=== PATIENT | male | born 1985 | race Caucasian/White ===

== ENCOUNTER 2016-06-10 12:45 | Emergency (ER) | payer SELFPAY ==
[2016-06-10 12:55] VITALS: BP 122/74
--- NOTE | 2016-06-10 13:13 | ER Document Report ---
ED Medical Screen (RME) - General Chief Complaint: Abscess Stated Complaint: ABSCESS/TAILBONE Mode of Arrival: Ambulatory Information source: Patient Notes: Pt to the ED with c/o abscess to tailbone area for 2 days. Denies hx of MRSA. I have greeted and performed a rapid initial assessment of this patient. A comprehensive ED assessment and evaluation of the patient, analysis of test results and completion of the medical decision making process will be conducted by additional ED providers. TRAVEL OUTSIDE OF THE [place] IN LAST 30 DAYS: No - Related Data Allergies/Adverse Reactions: No Known Allergies Allergy (Verified 06/10/16 13:01) Past Medical History - Social History Chew tobacco use (# tins/day): No Frequency of alcohol use: None Drug Abuse: None Pulmonary Medical History: Reports: Hx Bronchitis Neurological Medical History: Reports: Hx Migraine Renal/ Medical History: Denies: Hx Peritoneal Dialysis Psychiatric Medical History: Reports: Hx Depression Past Surgical History: Reports: Hx Cardiac Surgery - open heart for ASD, Hx Oral Surgery - Immunizations Immunizations up to date: Yes Hx Diphtheria, Pertussis, Tetanus Vaccination: Yes Physical Exam - Vital signs Vitals: Temp Pulse Resp BP Pulse Ox 98.0 F 77 20 122/74 96 06/10/16 12:54 06/10/16 12:54 06/10/16 12:54 06/10/16 12:54 06/10/16 12:54 Course - Vital Signs Vital signs: Temp Pulse Resp BP Pulse Ox 98.0 F 77 20 122/74 96 06/10/16 12:54 06/10/16 12:54 06/10/16 12:54 06/10/16 12:54 06/10/16 12:54
[2016-06-10] MEDS ORDERED: LIDOCAINE 1%/EPINEPHRINE INJ 20 ML VIAL INJ ONE (14:00)
[2016-06-10] MEDS ORDERED: OXYCODONE-ACETAMINOPHEN 5-325 MG TABLET PO ONE (14:02)
[2016-06-10] MEDS ORDERED: PROMETHAZINE HCL 25 MG TABLET PO ONE (14:02)
--- NOTE | 2016-06-10 14:07 | ER Document Report ---
ED Skin Rash/Insect Bite/Abscs - General Chief Complaint: Abscess Stated Complaint: ABSCESS/TAILBONE Mode of Arrival: Ambulatory Notes: Patient has a recurrent pilonidal abscess at the superior gluteal crease to the patient's right. He says that it began to swell about a week ago and became painful about a couple of days ago. This time, it has not drained spontaneously. Patient has had these abscesses many times in the past and sometimes a drain spontaneously and got better and other times he said to have them opened surgically and drained, about 4-5 times in the past. Denies fever. TRAVEL OUTSIDE OF THE [place] IN LAST 30 DAYS: No - Related Data Allergies/Adverse Reactions: No Known Allergies Allergy (Verified 06/10/16 13:01) Past Medical History - General Information source: Patient - Social History Smoking Status: Never Smoker Chew tobacco use (# tins/day): No Frequency of alcohol use: None Drug Abuse: None Family History: Reviewed & Not Pertinent, DM Patient has suicidal ideation: No Patient has homicidal ideation: No Pulmonary Medical History: Reports: Hx Bronchitis Neurological Medical History: Reports: Hx Migraine Psychiatric Medical History: Reports: Hx Depression Past Surgical History: Reports: Hx Cardiac Surgery - open heart for ASD, Hx Oral Surgery - Immunizations Immunizations up to date: Yes Hx Diphtheria, Pertussis, Tetanus Vaccination: Yes Review of Systems - Review of Systems Notes: REVIEW OF SYSTEMS: CONSTITUTIONAL : Denies fever. EENT: Denies eye, ear, nose or mouth or throat pain or other symptoms. CARDIOVASCULAR: Denies chest pain. RESPIRATORY: Denies cough, chest congestion, or shortness of breath. GASTROINTESTINAL: Denies abdominal pain or nausea, vomiting, or diarrhea. GENITOURINARY: Denies difficulty or painful urinating, urinary frequency, blood in urine. MUSCULOSKELETAL: Denies back or neck pain. Denies joint pain or swelling. SKIN: Denies rash. See history of present illness. NEUROLOGICAL: Denies LOC or altered mental status. Denies headache. Denies sensory loss or motor deficits. ALL OTHER SYSTEMS REVIEWED AND NEGATIVE. Physical Exam - Vital signs Vitals: Temp Pulse Resp BP Pulse Ox 98.0 F 77 20 122/74 96 06/10/16 12:54 06/10/16 12:54 06/10/16 12:54 06/10/16 12:54 06/10/16 12:54 Interpretation: Normal - Notes Notes: PHYSICAL EXAMINATION: GENERAL: Well-appearing, in no acute distress. HEAD: Atraumatic, normocephalic. LUNGS: Breath sounds clear and equal bilaterally. HEART: Regular rate and rhythm without murmurs. ABDOMEN: Soft, nontender. No guarding or rebound. BACK: No tenderness throughout entire back. Patient has an obvious swollen area at the superior right gluteal cleft which is fluctuant and very tender to the touch and has some dry blood around the area which looks like lesion has begun to drain. EXTREMITIES: Normal range of motion without pain. NEUROLOGICAL: Normal speech, normal gait. Normal sensory, motor, and reflex exams. Awake, alert, and oriented x3. Cranial nerves normal. SKIN: Warm, dry, no rashes. Course - Vital Signs Vital signs: Temp Pulse Resp BP Pulse Ox 98.0 F 77 20 122/74 96 06/10/16 12:54 06/10/16 12:54 06/10/16 12:54 06/10/16 12:54 06/10/16 12:54 Procedures - Incision and Drainage Right Upper Buttock Type: Simple, Single Anesthetic type: 1% Lidocaine w/epi Blade size: 11 I&D procedure: Betadine prep applied, Iodoform packing placed Incision Method: Incision made by scalpel Amount/type of drainage: 5 Adult Front & Back picture: 1 - Swollen, fluctuant, tender abscess just to the left of the gluteal crease superiorly. Discharge - Discharge Clinical Impression: Pilonidal abscess Condition: Stable Disposition: HOME, SELF-CARE Additional Instructions: ABSCESS: You have an abscess (boil). This a pus-forming infection, usually due to staph. Some boils may be left to drain on their own, but most require lancing. From the time the tender lump first appears, it may be three or four days before the abscess is ready to kranthi. Local heat and rest help at this stage of treatment. An antibiotic may prevent spread of the infection. Once the abscess is opened, packing may be placed into it. This is done so pus is not sealed inside by premature closure of the cavity. The packing will be removed at your follow-up visit or you may be advised to remove it yourself at home. Sometimes this packing must be replaced a few times during healing. The wound will heal with surprisingly little scar. Depending on the size and location of an abscess, healing can take one to four weeks. You may shower and wash the area around the incision site two or three times a day. Antibiotics may be prescribed, but are usually not necessary after an abscess has been drained. If you develop fever, chills, worsening pain, or increasing swelling in the area, call the doctor or return immediately. POST INCISION AND DRAINAGE: You have had an incision made to allow drainage of an abscess. The incision must remain open so that pus and debris can drain from the wound. If the abscess cavity is large, packing is placed. This keeps the tissues from collapsing and trapping pus inside, while the body shrinks the cavity. The packing may need to be replaced every day or two. The physician will instruct you on the packing. Keep a bulky dressing over the area. Replace it if it becomes saturated with blood or pus. Do not disturb the packing (if present). You may shower and cleanse the area with gentle soap and warm water two or three times a day. Local warmth may be soothing, and may promote faster healing. Return if you develop high fever or chills, or if you note spreading redness, increasing swelling, or increasing tenderness. Pulled the packing out Wednesday. MRSA CELLULITIS: You have an infection of your skin and underlying soft tissues called cellulitis. This is due to bacteria, which can enter through any break in the skin, or even through an irritated hair follicle. Untreated, cellulitis will usually worsen and may form an abscess which requires draining. Although many bacterial organisms can cause cellulitis and abscess formations, the most likely bacteria is Methicillin-Resistant Staph Aureus, or MRSA for short. Antibiotics are required. Usually, warm packs or warm soaks, and elevation of the infected area are recommended. You should start getting better within 24 to 36 hours. Most infections respond quickly to the right medication. Follow-up care is important, however, to check for abscess (boil) formation, unsuspected foreign body, or resistant infection. If you develop fever, chills, or if the area of infection is becoming rapidly more swollen or painful, call the doctor at once. ORAL NARCOTIC MEDICATION: You have been given a prescription for pain control. This medication is a narcotic. It's best taken with food, as nausea can result if taken on an empty stomach. Don't operate machinery or drive within six hours of taking this medication. Do not combine this medicine with alcohol, or with any medication which can cause sedation (such as cold tablets or sleeping pills) unless you get permission from the physician. Narcotics tend to cause constipation. If possible, drink plenty of fluids and eat a diet high in fiber and fruits. CEPHALEXIN: The antibiotic you've been prescribed is a member of the cephalosporin class. This type of antibiotic covers a wide variety of infections, including those of the skin, lungs, and urinary tract. It's useful for staph infections. This antibiotic is slightly similar to the penicillin family. In rare cases , a person who is allergic to penicillin will also be allergic to this medication. If you have had a severe allergic reaction to penicillin, and have not taken this antibiotic since that time, notify your doctor. Antibiotics which cover many germs ("broad spectrum" antibiotics) are more likely to cause diarrhea or "yeast" infections. Women prone to vaginal yeast problems may suffer an attack after taking this antibiotic. In infants, oral thrush (white spots "stuck" on the cheek) or yeast diaper rash may result. See your doctor if these problems occur. Call at once if you develop itching, hives , shortness of breath, or lightheadedness. FOLLOW-UP CARE: Most simple abscesses will not require a follow up visit. If you had packing placed in the abscess, remove it as instructed by the physician. If you have been referred to a physician for follow-up care, call the physicians office for an appointment as you were instructed or within the next two days. If you experience worsening or a significant change in your symptoms, return to the Emergency Department at any time for re-evaluation. Prescriptions: Oxycodone HCl/Acetaminophen [Percocet 10-325 Mg Tablet] 1 each PO Q4HP PRN #15 tablet PRN Reason: Cephalexin [Cephalexin 500 MG Tablet] 1 tab PO QID #20 tablet Forms: Return to Work
== END 2016-06-10 15:21 | disposition home or self-care (01) ==
LOC: ER 12:45
PROC: 0H98XZZ Drainage of Buttock Skin, External Approach (ICD-10-PCS; principal; 2016-06-10)
DX: L05.01 Pilonidal cyst with abscess (principal)
CPT/HCPCS: 10080; 99283; 87070; 87205; 87075; J3490; 87077

== ENCOUNTER 2016-06-25 15:26 | Emergency (ER) | payer SELFPAY ==
[2016-06-25] MEDS ORDERED: LIDOCAINE 2% VISCOUS SOLN 20 ML UDCUP PO ONE (15:47)
[2016-06-25] MEDS ORDERED: MAG HYDROX/AL HYDROX/SIMETH SUSP 30 ML UDCUP PO ONE (15:47)
[2016-06-25] MEDS ORDERED: METOCLOPRAMIDE HCL ORAL SOLN 10 MG/10 ML UDCUP PO ONE (15:47)
[2016-06-25] MEDS ORDERED: ASPIRIN 81 MG TABLET, CHEWABLE PO ONE (15:48)
--- NOTE | 2016-06-25 15:55 | ER Document Report ---
ED Medical Screen (RME) - General Chief Complaint: Chest Pain > 30 Stated Complaint: CHEST PAIN Mode of Arrival: Ambulatory Information source: Patient Notes: 31 y/o M presents to ED c/o epigastric/mid chest pain since this morning. Denies fever, sob, or n/v. I have greeted and performed a rapid initial assessment of this patient. A comprehensive ED assessment and evaluation of the patient, analysis of test results and completion of the medical decision making process will be conducted by additional ED providers. TRAVEL OUTSIDE OF THE [place] IN LAST 30 DAYS: No - Related Data Allergies/Adverse Reactions: No Known Allergies Allergy (Verified 06/25/16 15:45) Past Medical History - Social History Chew tobacco use (# tins/day): No Frequency of alcohol use: None Drug Abuse: None Pulmonary Medical History: Reports: Hx Bronchitis Neurological Medical History: Reports: Hx Migraine Renal/ Medical History: Denies: Hx Peritoneal Dialysis Psychiatric Medical History: Reports: Hx Depression Past Surgical History: Reports: Hx Cardiac Surgery - open heart for ASD, Hx Oral Surgery - Immunizations Immunizations up to date: Yes Hx Diphtheria, Pertussis, Tetanus Vaccination: Yes Physical Exam - General General appearance: Appears well, Alert In distress: None - Respiratory Respiratory status: No respiratory distress Breath sounds: Normal
[2016-06-25 16:08] LABS: ABSOLUTE BASOPHILS # (AUTO) 0.1 10^3/uL (0.0-0.2); ABSOLUTE EOSINOPHILS # (AUTO) 0.2 10^3/uL (0.0-0.6); ABSOLUTE LYMPHOCYTES (AUTO) 3.2 10^3/uL (0.5-4.7); ABSOLUTE NEUT (AUTO) 4.4 10^3/uL (1.7-8.2); EOSINOPHILS % (AUTO) 1.8 % (0-6); HEMOGLOBIN 15.3 g/dL (13.5-17.0); HGB HCT DIFFERENCE 0.9; LYMPHOCYTES % (AUTO) 36.6 % (13-45); MEAN CORPUSCULAR HEMOGLOBIN 27.6 pg (27.0-33.4); MEAN CORPUSCULAR VOLUME 81 fl (80-97); MONOCYTES % (AUTO) 10.9 % (3-13); RED BLOOD COUNT 5.54 10^6/uL (4.35-5.55); RED CELL DISTRIBUTION WIDTH 13.9 % (11.5-14.0); SEGMENTED NEUTROPHILS % (AUTO) 49.7 % (42-78); WHITE BLOOD COUNT 8.9 10^3/uL (4.0-10.5)
[2016-06-25 16:30] LABS: ALANINE AMINOTRANSFERASE 84 U/L (21-72); ALBUMIN 4.4 g/dL (3.5-5.0); ALKALINE PHOSPHATASE 66 U/L (38-126); ANION GAP 12 (5-19); ASPARTATE AMINO TRANSFERASE 57 U/L (17-59); BILIRUBIN,TOTAL 0.7 mg/dL (0.2-1.3); BLOOD UREA NITROGEN 9 mg/dL (7-20); CALCIUM 9.2 mg/dL (8.4-10.2); CARBON DIOXIDE 26 mmol/L (22-30); CHLORIDE 104 mmol/L (98-107); CREATINE KINASE 397 U/L (55-170); CREATININE RESULT 0.91 mg/dL (0.52-1.25); GLUCOSE 77 mg/dL (75-110); POTASSIUM 4.3 mmol/L (3.6-5.0); TOTAL PROTEIN 7.2 g/dL (6.3-8.2)
[2016-06-25 16:41] LABS: CREATINE KINASE MB 1.61 ng/mL (<4.55)
[2016-06-25 16:42] LABS: TROPONIN I < 0.012 ng/mL
--- NOTE | 2016-06-25 16:52 | ER Document Report ---
ED General - General Chief Complaint: Chest Pain > 30 Stated Complaint: CHEST PAIN Time seen by provider: 16:52 Mode of Arrival: Ambulatory Information source: Patient Notes: 31 yo non smoker, non htn, non hyperlipedemic, obese male with ASD correction at age 4 developed at 12:10 dull pain lower sternum intermittent chest pain that shortly thereafer radiated to epigastric dull pain on way to the bus. Went to bathroom and had bowel movement with decreased the epigastric discomfort but says chest still hurts and feels very weak. denies drug use. Meds in triage helped. No shortness of breath. No hx GERD. FH: htn, dm non cad TRAVEL OUTSIDE OF THE [place] IN LAST 30 DAYS: No - Related Data Allergies/Adverse Reactions: No Known Allergies Allergy (Verified 06/25/16 15:45) Past Medical History - General Information source: Patient - Social History Smoking Status: Former Smoker Chew tobacco use (# tins/day): No Frequency of alcohol use: None Drug Abuse: None Lives with: Family Family History: Reviewed & Not Pertinent, DM Patient has suicidal ideation: No Patient has homicidal ideation: No Pulmonary Medical History: Reports: Hx Bronchitis Neurological Medical History: Reports: Hx Migraine Renal/ Medical History: Denies: Hx Peritoneal Dialysis Psychiatric Medical History: Reports: Hx Depression Past Surgical History: Reports: Hx Cardiac Surgery - open heart for ASD, Hx Oral Surgery - Immunizations Immunizations up to date: Yes Hx Diphtheria, Pertussis, Tetanus Vaccination: Yes Review of Systems - Review of Systems Constitutional: No symptoms reported EENT: No symptoms reported Cardiovascular: See HPI Respiratory: No symptoms reported Gastrointestinal: See HPI Genitourinary: No symptoms reported Male Genitourinary: No symptoms reported Musculoskeletal: No symptoms reported Skin: No symptoms reported Hematologic/Lymphatic: No symptoms reported Neurological/Psychological: No symptoms reported Physical Exam - Vital signs Vitals: Temp Pulse Resp BP Pulse Ox 97.7 F 84 16 124/70 97 06/25/16 15:46 06/25/16 15:46 06/25/16 15:46 06/25/16 15:46 06/25/16 15:46 Interpretation: Normal - General General appearance: Appears well, Alert - HEENT Head: Normocephalic, Atraumatic Eyes: Normal Conjunctiva: Normal Pupils: PERRL Neck: Supple. No: Lymphadenopathy - Respiratory Respiratory status: No respiratory distress Chest status: Nontender Breath sounds: Normal Chest palpation: Normal - Cardiovascular Rhythm: Regular Heart sounds: Normal auscultation Murmur: No - Abdominal Inspection: Normal Distension: No distension Bowel sounds: Normal Tenderness: Tender - epigastrum Organomegaly: No organomegaly - Back Back: Normal, Nontender - Extremities General upper extremity: Normal inspection, Nontender, Normal color, Normal ROM , Normal temperature General lower extremity: Normal inspection, Nontender, Normal color, Normal ROM , Normal temperature, Normal weight bearing. No: Ramsey's sign - Neurological Neuro grossly intact: Yes Cognition: Normal Orientation: AAOx4 Vancleve Coma Scale Eye Opening: Spontaneous Sidra Coma Scale Verbal: Oriented Vancleve Coma Scale Motor: Obeys Commands Sidra Coma Scale Total: 15 Speech: Normal Motor strength normal: LUE, RUE, LLE, RLE Sensory: Normal - Psychological Associated symptoms: Normal affect, Normal mood - Skin Skin Temperature: Warm Skin Moisture: Dry Skin Color: Normal Skin irregularity: negative: Rash Course - Re-evaluation Re-evalutation: 06/25/16 17:51 I have consulted with the supervisory physician per [facility] Guidelines. Dr. GLOVER. 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 EKG is normal sinus rhythm. Chest x-ray is negative. Reactive enzymes are negative. Troponin is negative. One liver enzymes mildly elevated. 06/25/16 18:20 vitals stable for discharge - Vital Signs Vital signs: Temp Pulse Resp BP Pulse Ox 97.9 F 79 18 106/66 98 06/25/16 18:18 06/25/16 18:18 06/25/16 18:18 06/25/16 18:18 06/25/16 18:18 - Laboratory Result Diagrams: 06/25/16 15:50 06/25/16 15:50 Laboratory results interpreted by me: 06/25/16 15:50 ALT 84 H Creatine Kinase 397 H Discharge - Discharge Clinical Impression: Epigastric pain Chest pain Qualifiers: Chest pain type: unspecified Qualified Code(s): R07.9 - Chest pain, unspecified Condition: Good Disposition: HOME, SELF-CARE Instructions: Low-Fat Diet ([facility]), Evaluation of Upper Abdominal Pain ([facility]), Chest Pain of Unclear Cause ([facility]), Family Physicians / Practices, Prilosec ( Acid Pump Inhibitor) ([facility]), Gastroenterology Additional Instructions: return to er if worse see a [facility] practice doctor for follow up 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 If you do not receive a survey, then you can go to the [facility] website, [email or web address] and place your comments about your very good care. Thank you very much. It was a pleasure being your medical provider today. Prescriptions: Esomeprazole Magnesium [Nexium] 40 mg PO DAILY #30 [email or web address] Forms: Return to Work Referrals: LOCALMD,NO [NO LOCAL MD] - Follow up as needed
[2016-06-25] MEDS ORDERED: LANSOPRAZOLE 30 MG TAB.RAP.DR PO ONE (17:48)
[2016-06-25 18:26] VITALS: BP 106/66
--- NOTE | 2016-06-25 22:07 | EKG REPORT ---
SEVERITY:- NORMAL ECG - SINUS RHYTHM : Confirmed by: Rhea Pena 25-Jun-2016 22:07:13
== END 2016-06-25 18:28 | disposition home or self-care (01) ==
LOC: ER 15:26
DX: R07.9 Chest pain, unspecified (principal); R10.13 Epigastric pain; R74.8 Abnormal levels of other serum enzymes; E66.9 Obesity, unspecified; R53.1 Weakness; Z87.891 Personal history of nicotine dependence
CPT/HCPCS: 93005; 99285; 36415; 82553; 82550; 83690; 85025; 80053; 84484; 71020; 93010; J3490

== ENCOUNTER 2016-07-05 14:56 | Emergency (ER) | payer SELFPAY ==
[2016-07-05] MEDS ORDERED: IBUPROFEN 800 MG TABLET PO ONE (16:22)
--- NOTE | 2016-07-05 16:22 | ER Document Report ---
ED Medical Screen (RME) - General Stated Complaint: SORE THROAT Time seen by provider: 16:20 Mode of Arrival: Ambulatory Information source: Patient Notes: 31-year-old male presents to ED for sore throat for week with difficulty swallowing just started today. No hypertrophy to tonsils or exudate noted. Patient denies fevers. States he's had some coughing and runny nose. States only past medical history is ASD repair at 3 years old.. I have greeted and performed a rapid initial assessment of this patient. A comprehensive ED assessment and evaluation of the patient, analysis of test results and completion of medical decision making process will be conducted by an additional ED providers. TRAVEL OUTSIDE OF THE [place] IN LAST 30 DAYS: No - Related Data Allergies/Adverse Reactions: No Known Allergies Allergy (Verified 06/25/16 15:45) Past Medical History Pulmonary Medical History: Reports: Hx Bronchitis Neurological Medical History: Reports: Hx Migraine Renal/ Medical History: Denies: Hx Peritoneal Dialysis Psychiatric Medical History: Reports: Hx Depression Past Surgical History: Reports: Hx Cardiac Surgery - open heart for ASD, Hx Oral Surgery - Immunizations Immunizations up to date: Yes Hx Diphtheria, Pertussis, Tetanus Vaccination: Yes Physical Exam - Vital signs Vitals: Temp Pulse Resp BP Pulse Ox 98.1 F 58 L 16 111/65 97 07/05/16 16:01 07/05/16 16:01 07/05/16 16:01 07/05/16 16:01 07/05/16 16:01 Course - Vital Signs Vital signs: Temp Pulse Resp BP Pulse Ox 98.1 F 58 L 16 111/65 97 07/05/16 16:01 07/05/16 16:01 07/05/16 16:01 07/05/16 16:01 07/05/16 16:01
[2016-07-05 19:22] VITALS: BP 115/66
--- NOTE | 2016-07-05 19:24 | ER Document Report ---
HPI - HPI Patient complains to provider of: sore throat cough and difficulties swallowing Onset: This morning Onset/Duration: Intermittent Quality of pain: Other - Sore Severity: Moderate Pain Level: 3 Associated Symptoms: Nonproductive cough, Rhinnorhea, Sinus pain/drainage, Sore throat Exacerbated by: Coughing Relieved by: Denies Similar symptoms previously: Yes Recently seen / treated by doctor: No - ROS ROS below otherwise negative: Yes - CONSTITUTIONAL Constitutional: DENIES: Fever, Chills - EENT EENT: REPORTS: Sore Throat, Nasal Drainage-Purulent. DENIES: Ear Pain, Nasal Drainage-Clear, Congestion, Eye problems - NEURO Neurology: DENIES: Headache, Weakness, Vision blurred, Dizzinesss / Vertigo - CARDIOVASCULAR Cardiovascular: DENIES: Chest pain - RESPIRATORY Respiratory: REPORTS: Coughing. DENIES: Trouble Breathing - GASTROINTESTINAL Gastrointestinal: DENIES: Abdominal Pain, Nausea, Patient vomiting, Diarrhea, Constipation, Black / Bloody Stools - URINARY Urinary: DENIES: Dysuria, Urgency, Frequency - REPRODUCTIVE Reproductive: DENIES: :, Postmenopausal, Abnormal bleeding / discharge - MUSCULOSKELETAL Musculoskeletal: DENIES: Extremity pain, Back Pain, Neck Pain, Swelling - DERM Skin Color: Normal Skin Problems: None Past Medical History - General Information source: Patient - Social History Smoking Status: Never Smoker Chew tobacco use (# tins/day): No Frequency of alcohol use: None Drug Abuse: None Lives with: Family Family History: CVA, DM, Hyperlipidemia, Hypertension, Thyroid Disfunction Patient has suicidal ideation: No Patient has homicidal ideation: No - Past Medical History Cardiac Medical History: Reports: None Pulmonary Medical History: Reports: Hx Bronchitis EENT Medical History: Reports: None Neurological Medical History: Reports: Hx Migraine Endocrine Medical History: Reports: None Renal/ Medical History: Reports: None Malignancy Medical History: Reports None GI Medical History: Reports: None Musculoskeltal Medical History: Reports None Skin Medical History: Reports None Psychiatric Medical History: Reports: Hx Anxiety, Hx Depression Traumatic Medical History: Reports: None Infectious Medical History: Reports: None Past Surgical History: Reports: Hx Cardiac Surgery - open heart for ASD, Hx Oral Surgery - Immunizations Immunizations up to date: Yes Hx Diphtheria, Pertussis, Tetanus Vaccination: Yes Vertical Provider Document - CONSTITUTIONAL Agree With Documented VS: Yes Exam Limitations: No Limitations General Appearance: WD/WN, No Apparent Distress - INFECTION CONTROL TRAVEL OUTSIDE OF THE [place] IN LAST 30 DAYS: No - HEENT HEENT: Atraumatic, Normocephalic, PERRLA. negative: Normal ENT Exam - Purulent nasal drainage, postnasal drip, no redness or inflammation of tonsils or oral mucosa. - NECK Neck: Normal Inspection - RESPIRATORY Respiratory: Breath Sounds Normal, No Respiratory Distress, Chest Non-Tender O2 Sat by Pulse Oximetry: 97 - CARDIOVASCULAR Cardiovascular: Regular Rate, Regular Rhythm, No Murmur - MUSCULOSKELETAL/EXTREMETIES Musculoskeletal/Extremeties: MAEW, FROM, Non-Tender - NEURO Level of Consciousness: Awake, Alert, Appropriate - DERM Integumentary: Warm, Dry, No Rash, Rash Course - Vital Signs Vital signs: Temp Pulse Resp BP Pulse Ox 98.1 F 58 L 16 111/65 97 07/05/16 16:01 07/05/16 16:01 07/05/16 16:01 07/05/16 16:01 07/05/16 16:01 Discharge - Discharge Clinical Impression: Upper respiratory infection Qualifiers: URI type: unspecified URI Qualified Code(s): J06.9 - Acute upper respiratory infection, unspecified Condition: Stable Disposition: HOME, SELF-CARE Instructions: Family Physicians / Practices Additional Instructions: UPPER RESPIRATORY ILLNESS: You have a viral infection of the respiratory passages -- a "cold." This common infection causes nasal congestion, drainage, and often sore throat and cough. It is highly contagious. The disease usually lasts about 10 to 14 days. There is no "cure" for the viral infection -- it must run its course. If there is a complication, such as bacterial infection in the nose, sinuses, middle ear, or bronchial tubes, antibiotics may be required. The antibiotics won't affect the virus. Drink plenty of fluids. A humidifier may help. An expectorant medication or decongestant may make you more comfortable. Use acetaminophen or ibuprofen for fever or aches. See the doctor if fever persists over two days, if there is any significant worsening of your symptoms, or if you simply fail to improve as expected. DECONGESTANT MEDICATION: A decongestant medicine has been suggested. Often this medicine is combined in the same tablet with an antihistamine or expectorant. This type of medicine is helpful in treating a bad cold or sinus condition, as well as in treatment of the nasal congestion of hay fever. It is not of much benefit for lung infections. Decongestant medicines are related to stimulants. They can cause an increase in blood pressure and heart rate. Persons with heart disease and high blood pressure should not take decongestants without discussing this with the physician. If you develop palpitations, chest pain, headache, or tremors, stop the medicine and consult your physician. COUGH-SUPPRESSANT & EXPECTORANT MEDICATION: You are to use a cough medication as needed for relief of symptoms. This medicine is a combination of an expectorant (to make the mucous thinner and more easily "coughed up") and a cough suppressant (to reduce the frequency of coughing). The cough-suppressant medicine is related to narcotics. You may experience mild nausea and sleepiness. Some patients who are very sensitive to narcotics may have stomach pain from this medicine. Taking the medicine with food reduces these side effects. Do not drive or work with machinery until you know how this medicine affects you. The expectorant should have no side effects. Iodine-containing expectorants (such as organidin) should not be taken by persons with active thyroid disease unless approved by your doctor. Call the doctor if you develop shortness of breath, hives, rash, itching, lightheadedness, or severe nausea and vomiting. USE OF ACETAMINOPHEN (Tylenol): Acetaminophen may be taken for pain relief or fever control. It's much safer than aspirin, offering a wider range of "safe" dosages. It is safe during . Some brand names are Tylenol, Panadol, Datril, Anacin 3, Tempra, and Liquiprin. Acetaminophen can be repeated every four hours. The following are maximum recommended dosages: >89 pounds or adults 650 mg to 900 mg Acetaminophen can be repeated every four hours. Maximum dose not to exceed 4000 mg a day. Salt and soda solution for gargling 1 tablespoon of salt 1 teaspoon of baking soda 1 quart of boiling water Mixed together put in a jar that has a red and used 10 mL 3 times a day to gargle and spit. FOLLOW-UP CARE: If you have been referred to a physician for follow-up care, call the physician s office for an appointment as you were instructed or within the next two days. If you experience worsening or a significant change in your symptoms, notify the physician immediately or return to the Emergency Department at any time for re-evaluation. Forms: Return to Work
== END 2016-07-05 19:20 | disposition home or self-care (01) ==
LOC: ER 14:56
DX: J06.9 Acute upper respiratory infection, unspecified (principal); J02.9 Acute pharyngitis, unspecified; R05 Cough; R13.10 Dysphagia, unspecified
CPT/HCPCS: 87070; 87880; 99283

== ENCOUNTER 2016-07-17 15:07 | Emergency (ER) | payer SELFPAY ==
--- NOTE | 2016-07-17 15:13 | ER Document Report ---
ED Medical Screen (RME) - General Stated Complaint: DIZZINESS/ABDOMINAL PAIN Mode of Arrival: Ambulatory Information source: Patient Notes: Patient complains of feeling lightheaded, dizzy and having throat pain. Patient states that he did break into a sweat at home but is uncertain if he may have had a fever. Patient reports throat pain off and on for several weeks. Patient complains of generalized abdominal pain off and on for several days. Patient denies any nausea, vomiting, or diarrhea. hx: None I have greeted and performed a rapid initial assessment of this patient. A comprehensive ED assessment and evaluation of the patient, analysis of test results and completion of the medical decision making process will be conducted by additional ED providers. TRAVEL OUTSIDE OF THE [place] IN LAST 30 DAYS: No - Related Data Allergies/Adverse Reactions: No Known Allergies Allergy (Verified 07/17/16 15:13) Past Medical History Pulmonary Medical History: Reports: Hx Bronchitis Neurological Medical History: Reports: Hx Migraine Renal/ Medical History: Denies: Hx Peritoneal Dialysis Psychiatric Medical History: Reports: Hx Anxiety, Hx Depression Past Surgical History: Reports: Hx Cardiac Surgery - open heart for ASD, Hx Oral Surgery - Immunizations Immunizations up to date: Yes Hx Diphtheria, Pertussis, Tetanus Vaccination: Yes Physical Exam - Abdominal Tenderness: Tender - Generalized abdomen
[2016-07-17 15:39] LABS: ABSOLUTE EOSINOPHILS # (AUTO) 0.1 10^3/uL (0.0-0.6); ABSOLUTE LYMPHOCYTES (AUTO) 3.2 10^3/uL (0.5-4.7); ABSOLUTE MONOCYTES (AUTO) 0.9 10^3/uL (0.1-1.4); ABSOLUTE NEUT (AUTO) 4.4 10^3/uL (1.7-8.2); BASOPHILS % (AUTO) 0.4 % (0-2); EOSINOPHILS % (AUTO) 1.5 % (0-6); HEMATOCRIT 41.8 % (37.9-51.0); HEMOGLOBIN 14.5 g/dL (13.5-17.0); HGB HCT DIFFERENCE 1.7; LYMPHOCYTES % (AUTO) 36.6 % (13-45); MEAN CORPUSCULAR HEMOGLOBIN 28.3 pg (27.0-33.4); MEAN CORPUSCULAR HGB CONC 34.8 g/dL (32.0-36.0); MEAN CORPUSCULAR VOLUME 81 fl (80-97); MONOCYTES % (AUTO) 10.5 % (3-13); RED BLOOD COUNT 5.14 10^6/uL (4.35-5.55); WHITE BLOOD COUNT 8.7 10^3/uL (4.0-10.5)
--- NOTE | 2016-07-17 15:52 | ER Document Report ---
ED General - General Time seen by provider: 14:47 Mode of Arrival: Ambulatory Information source: Patient TRAVEL OUTSIDE OF THE [place] IN LAST 30 DAYS: No - HPI Onset: Other - see HPI notes Onset/Duration: Waxing and waning - d Associated symptoms: Sore throat <LARRY BRIONES - Last Filed: 07/17/16 16:44> <KARMENLISA ANN - Last Filed: 07/17/16 21:51> - General Chief Complaint: Abdominal Pain Stated Complaint: DIZZINESS/ABDOMINAL PAIN Notes: Patient is a 31 year old male presenting to the emergency department complaining of some throat pain for the past month. Patient also has some abdominal pain now that was all over but now is mostly in the RUQ. Patient also complains of some lightheaded/dizziness. Patient is currently taking no medications. Patient denies any nausea, vomiting, or diarrhea. (LARRY BRIONES) - Related Data Allergies/Adverse Reactions: No Known Allergies Allergy (Verified 07/17/16 15:13) Past Medical History - General Information source: Patient - Social History Smoking Status: Never Smoker Cigarette use (# per day): No Chew tobacco use (# tins/day): No Frequency of alcohol use: None Drug Abuse: None Family History: CVA, DM, Hyperlipidemia, Hypertension, Thyroid Disfunction Patient has suicidal ideation: No Patient has homicidal ideation: No Pulmonary Medical History: Reports: Hx Bronchitis Neurological Medical History: Reports: Hx Migraine Psychiatric Medical History: Reports: Hx Anxiety, Hx Depression Past Surgical History: Reports: Hx Cardiac Surgery - open heart for ASD (1987), Hx Oral Surgery - Immunizations Immunizations up to date: Yes Hx Diphtheria, Pertussis, Tetanus Vaccination: Yes <LARRY BRIONES - Last Filed: 07/17/16 16:44> Review of Systems - Review of Systems Constitutional: No symptoms reported EENT: See HPI, Throat pain Cardiovascular: See HPI, Dizziness, Lightheaded Respiratory: No symptoms reported Gastrointestinal: See HPI, Abdominal pain Genitourinary: No symptoms reported Male Genitourinary: No symptoms reported Musculoskeletal: No symptoms reported Skin: No symptoms reported Hematologic/Lymphatic: No symptoms reported Neurological/Psychological: No symptoms reported -: Yes All other systems reviewed and negative <LARRY BRIONES - Last Filed: 07/17/16 16:44> Physical Exam - Vital signs Interpretation: Normal - General General appearance: Appears well, Alert - HEENT Head: Normocephalic, Atraumatic Eyes: Normal Pupils: PERRL - Respiratory Respiratory status: No respiratory distress Chest status: Nontender Breath sounds: Normal Chest palpation: Normal - Cardiovascular Rhythm: Regular Heart sounds: Normal auscultation Murmur: No - Abdominal Inspection: Normal Distension: No distension Bowel sounds: Normal Tenderness: Tender - Tenderness to palpation bilateral upper quadrants, mild. No: Guarding, Rebound Organomegaly: No organomegaly - Back Back: Normal, Nontender - Extremities General upper extremity: Normal inspection, Nontender, Normal color, Normal ROM , Normal temperature General lower extremity: Normal inspection, Nontender, Normal color, Normal ROM , Normal temperature, Normal weight bearing. No: Ramsey's sign - Neurological Neuro grossly intact: Yes Cognition: Normal Orientation: AAOx4 Loco Coma Scale Eye Opening: Spontaneous Loco Coma Scale Verbal: Oriented Loco Coma Scale Motor: Obeys Commands Sidra Coma Scale Total: 15 Speech: Normal Motor strength normal: LUE, RUE, LLE, RLE Sensory: Normal - Psychological Associated symptoms: Normal affect, Normal mood - Skin Skin Temperature: Warm Skin Moisture: Dry Skin Color: Normal <LISA PERAZA - Last Filed: 07/17/16 21:51> Course - Laboratory Result Diagrams: 07/17/16 15:25 07/17/16 15:25 <LARRY BRIONES - Last Filed: 07/17/16 16:44> - Laboratory Result Diagrams: 07/17/16 15:25 07/17/16 15:25 - Diagnostic Test Radiology reviewed: Reports reviewed <LISA PERAZA - Last Filed: 07/17/16 21:51> - Re-evaluation Re-evalutation: 07/17/16 Patient no acute findings on blood work. No evidence for cholecystitis. Gallbladder ultrasound within normal limits. Patient was given GI cocktail and is feeling better. He'll be discharged home with same. Stable for discharge. Return if any worsening or concerning symptoms. Follow-up with PMD and GI doctor. Understands agrees with plan. (LISA PERAZA) - Laboratory Laboratory results interpreted by me: 07/17/16 07/17/16 15:25 15:25 ALT 86 H Urine Ascorbic Acid 40 H (LISA PERAZA) Discharge <LARRY BRIONES - Last Filed: 07/17/16 16:44> <LISA PERAZA - Last Filed: 07/17/16 21:51> - Discharge Clinical Impression: Upper abdominal pain Condition: Stable Disposition: HOME, SELF-CARE Instructions: Abdominal Pain ([facility]), Gastritis ([facility]), Gastroenterology Prescriptions: Lansoprazole [Prevacid 15 mg Odt Tablet] 15 mg PO ACBRKFST #30 tab.rap. Ranitidine HCl 150 mg PO BID #60 tablet Sucralfate [Carafate 1 gm Tablet] 1 gm PO ACHS #120 tablet Forms: Return to Work Scribe Attestation: 07/17/16 21:51 I personally performed the services described in the documentation, reviewed and edited the documentation which was dictated to the scribe in my presence, and it accurately records my words and actions. (LISA PERAZA) Scribe Documentation - Scribe Written by Scribe:: Larry Briones 07/17/16 16:46 acting as scribe for :: Karmen <LARRY BRIONES - Last Filed: 07/17/16 16:44>
[2016-07-17 15:57] LABS: ALANINE AMINOTRANSFERASE 86 U/L (21-72); ALBUMIN 4.5 g/dL (3.5-5.0); ALKALINE PHOSPHATASE 74 U/L (38-126); ANION GAP 14 (5-19); ASPARTATE AMINO TRANSFERASE 55 U/L (17-59); BILIRUBIN,TOTAL 0.6 mg/dL (0.2-1.3); BLOOD UREA NITROGEN 10 mg/dL (7-20); CALCIUM 9.5 mg/dL (8.4-10.2); CARBON DIOXIDE 24 mmol/L (22-30); CHLORIDE 103 mmol/L (98-107); CREATININE RESULT 0.84 mg/dL (0.52-1.25); GLUCOSE 81 mg/dL (75-110); LIPASE 122.2 U/L (23-300); POTASSIUM 4.2 mmol/L (3.6-5.0); SODIUM 141.1 mmol/L (137-145); TOTAL PROTEIN 7.6 g/dL (6.3-8.2)
[2016-07-17 16:33] LABS: APPEARANCE,URINE CLEAR
[2016-07-17 16:34] LABS: BILIRUBIN,URINE NEGATIVE (NEGATIVE); GLUCOSE, URINE NEGATIVE (NEGATIVE); KETONES,URINE NEGATIVE (NEGATIVE); LEUKOCYTE ESTERASE,URINE NEGATIVE (NEGATIVE); NITRITE,URINE NEGATIVE (NEGATIVE); PROTEIN,URINE NEGATIVE (NEGATIVE); URINE SPECIFIC GRAVITY 1.029; UROBILINOGEN,URINE NEGATIVE mg/dL (<2.0)
[2016-07-17 16:36] LABS: RBC,URINE RARE /HPF; WBC,URINE RARE /HPF
--- NOTE | 2016-07-17 16:53 | EKG REPORT ---
SEVERITY:- NORMAL ECG - SINUS RHYTHM : Confirmed by: Azra Yin MD 17-Jul-2016 16:53:17
[2016-07-17] MEDS ORDERED: FAMOTIDINE 20 MG TABLET PO ONE (17:01)
[2016-07-17] MEDS ORDERED: SUCRALFATE 1 GM TABLET PO ONE (17:01)
[2016-07-17] MEDS ORDERED: ONDANSETRON 4 MG TAB.RAPDIS PO ONE (17:01)
== END 2016-07-17 17:33 | disposition home or self-care (01) ==
LOC: ER 15:07
DX: R10.10 Upper abdominal pain, unspecified (principal); R42 Dizziness and giddiness
CPT/HCPCS: 93005; 99284; 36415; 83690; 85025; 86308; 80053; 81001; 87804; 76705; 93010; S0119

== ENCOUNTER 2016-07-30 15:46 | Emergency (ER) | payer SELFPAY ==
--- NOTE | 2016-07-30 16:07 | ER Document Report ---
ED Medical Screen (RME) - General Stated Complaint: HEAD/CHEST PAIN Notes: onset: wednesday patient is a 31 year old male p/w headache and chest pressure, body aches, cold sweats and dizzyness. Headache localized in tension distribution. Denies nausea , light sensitivity, sound sensitivity. (-) did not receive flu vaccine PMH: REGINA I have greeted and performed a rapid initial assessment of this patient. A comprehensive ED assessment and evaluation of the patient, analysis of test results and completion of the medical decision making process will be conducted by additional ED providers. TRAVEL OUTSIDE OF THE [place] IN LAST 30 DAYS: No - Related Data Allergies/Adverse Reactions: No Known Allergies Allergy (Verified 07/30/16 16:02) Past Medical History Pulmonary Medical History: Reports: Hx Bronchitis Neurological Medical History: Reports: Hx Migraine Renal/ Medical History: Denies: Hx Peritoneal Dialysis Psychiatric Medical History: Reports: Hx Anxiety, Hx Depression Past Surgical History: Reports: Hx Cardiac Surgery - open heart for ASD (1987), Hx Oral Surgery - Immunizations Immunizations up to date: Yes Hx Diphtheria, Pertussis, Tetanus Vaccination: Yes Physical Exam - Vital signs Vitals: Temp Pulse Resp BP Pulse Ox 98.1 F 63 17 121/66 97 07/30/16 15:53 07/30/16 15:53 07/30/16 15:53 07/30/16 15:53 07/30/16 15:53 Course - Vital Signs Vital signs: Temp Pulse Resp BP Pulse Ox 98.1 F 63 17 121/66 97 07/30/16 15:53 07/30/16 15:53 07/30/16 15:53 07/30/16 15:53 07/30/16 15:53
[2016-07-30] MEDS ORDERED: DIPHENHYDRAMINE HCL 25 MG CAPSULE PO ONE (16:08)
[2016-07-30] MEDS ORDERED: ACETAMINOPHEN 325 MG TABLET PO ONE (16:08)
[2016-07-30] MEDS ORDERED: METOCLOPRAMIDE HCL 10 MG TABLET PO ONE (16:08)
--- NOTE | 2016-07-30 16:45 | ER Document Report ---
ED General - General Chief Complaint: Headache Stated Complaint: HEAD/CHEST PAIN Mode of Arrival: Ambulatory Information source: Patient Notes: Patient presents to the emergency department with complaints of headache since yesterday. Reports he feels little lightheaded headed, cold sweats. Patient was evaluated last week for some of the same symptoms. He reports this is about the same. He denies fever vomiting diarrhea. Patient is nontoxic looking looks no distress. Patient works at [employer]. He requesting a work note to be off until Wednesday. TRAVEL OUTSIDE OF THE [place] IN LAST 30 DAYS: No - HPI Onset: Yesterday Onset/Duration: Persistent Quality of pain: Pressure Pain Level: 4 Associated symptoms: None Exacerbated by: Denies Relieved by: Denies Similar symptoms previously: Yes Recently seen / treated by doctor: Yes - Related Data Allergies/Adverse Reactions: No Known Allergies Allergy (Verified 07/30/16 16:02) Past Medical History - General Information source: Patient - Social History Smoking Status: Never Smoker Chew tobacco use (# tins/day): No Frequency of alcohol use: None Drug Abuse: None Occupation: [employer] Lives with: Family Family History: CVA, DM, Hyperlipidemia, Hypertension, Thyroid Disfunction Patient has suicidal ideation: No Patient has homicidal ideation: No - Past Medical History Cardiac Medical History: Reports: Other - asd Pulmonary Medical History: Reports: Hx Bronchitis Neurological Medical History: Reports: Hx Migraine Renal/ Medical History: Denies: Hx Peritoneal Dialysis Psychiatric Medical History: Reports: Hx Anxiety, Hx Depression Past Surgical History: Reports: Hx Cardiac Surgery - open heart for ASD (1987), Hx Oral Surgery - Immunizations Immunizations up to date: Yes Hx Diphtheria, Pertussis, Tetanus Vaccination: Yes Review of Systems - Review of Systems Notes: Review HPI for review of systems., All other systems negative Physical Exam - Vital signs Vitals: Temp Pulse Resp BP Pulse Ox 98.1 F 63 17 121/66 97 07/30/16 15:53 07/30/16 15:53 07/30/16 15:53 07/30/16 15:53 07/30/16 15:53 - Notes Notes: PHYSICAL EXAMINATION: GENERAL: Well-appearing and in no acute distress nontoxic looking HEAD: Atraumatic, normocephalic. report feels like pressure band around top of his forehead, no pain with palpation EYES: Pupils equal round and reactive to light, extraocular movements intact, sclera anicteric, conjunctiva are normal. ENT:TM WNL, nares patent, oropharynx clear without exudates. Moist mucous membranes. NECK: Normal range of motion, supple without lymphadenopathy LUNGS: CTAB and equal. No wheezes rales or rhonchi. HEART: Regular rate and rhythm without murmurs ABDOMEN: Soft, no tenderness. No guarding, no rebound EXTREMITIES: Normal range of motion, no pitting edema. No cyanosis. NEUROLOGICAL: Cranial nerves grossly intact. Normal sensory/motor exams. PSYCH: Normal mood, normal affect. SKIN: Warm, Dry, normal turgor, no rashes or lesions noted Course - Re-evaluation Re-evalutation: 07/30/16 Patient instructed on importance of follow-up. Patient nontoxic looking. Patient instructed to take ibuprofen for for the pain push fluids, decongestant as indicated. He verbalized understanding. - Vital Signs Vital signs: Temp Pulse Resp BP Pulse Ox 97.6 F 61 18 122/69 96 07/30/16 17:53 07/30/16 17:53 07/30/16 17:53 07/30/16 17:53 07/30/16 17:53 - Diagnostic Test Radiology reviewed: Image reviewed, Reports reviewed - IMPRESSION: NO SIGNIFICANT RADIOGRAPHIC FINDING IN THE CHEST. Discharge - Discharge Clinical Impression: Headache Qualifiers: Headache type: unspecified Headache chronicity pattern: unspecified pattern Intractability: not intractable Qualified Code(s): R51 - Headache Condition: Stable Disposition: HOME, SELF-CARE Instructions: Headache ([facility]) Additional Instructions: *You have been evaluated for headache *Take advil as indicated, over the counter decongestant as indicated *Follow up with a primary care provider or [facility] within one week for recheck *Return to ED for worsening condition, changes, needs *Return to ED if not better in 24 hours Forms: Return to Work
[2016-07-30 17:59] VITALS: BP 122/69
--- NOTE | 2016-07-30 19:58 | EKG REPORT ---
SEVERITY:- NORMAL ECG - SINUS RHYTHM : Confirmed by: Rhea Pena 30-Jul-2016 19:56:57
== END 2016-07-30 17:59 | disposition home or self-care (01) ==
LOC: ER 15:46
DX: R51 Headache (principal); R42 Dizziness and giddiness; R61 Generalized hyperhidrosis; R07.9 Chest pain, unspecified; Z82.3 Family history of stroke; Z82.49 Family history of ischemic heart disease and other diseases of the circulatory system
CPT/HCPCS: 71020; 87804; 93005; 93010; 99284

== ENCOUNTER 2016-08-02 15:17 | Emergency (ER) | payer SELFPAY ==
[2016-08-02] MEDS ORDERED: ASPIRIN 81 MG TABLET, CHEWABLE PO ONE (15:20)
--- NOTE | 2016-08-02 15:22 | ER Document Report ---
ED Medical Screen (RME) - General Stated Complaint: CHEST PAIN Mode of Arrival: Ambulatory Information source: Patient Notes: Patient presents to the emergency department with chest pain that started last night. Denies history of cardiac disease. No family history of cardiac disease. Patient also reports pain to his left elbow left shoulder. Denies nausea vomiting diarrhea. Denies trauma. Patient reports trouble breathing this morning. I have greeted and performed a rapid initial assessment of this patient. A comprehensive ED assessment and evaluation of the patient, analysis of test results and completion of the medical decision making process will be conducted by additional ED providers. TRAVEL OUTSIDE OF THE [place] IN LAST 30 DAYS: No - Related Data Allergies/Adverse Reactions: No Known Allergies Allergy (Verified 07/30/16 16:02) Past Medical History Pulmonary Medical History: Reports: Hx Bronchitis Neurological Medical History: Reports: Hx Migraine Renal/ Medical History: Denies: Hx Peritoneal Dialysis Psychiatric Medical History: Reports: Hx Anxiety, Hx Depression Past Surgical History: Reports: Hx Cardiac Surgery - open heart for ASD (1987), Hx Oral Surgery - Immunizations Immunizations up to date: Yes Hx Diphtheria, Pertussis, Tetanus Vaccination: Yes
[2016-08-02 15:39] VITALS: BP 129/72
--- NOTE | 2016-08-02 16:55 | ER Document Report ---
ED General Pain - General Chief Complaint: Chest Pain Stated Complaint: CHEST PAIN Mode of Arrival: Ambulatory Notes: Patient is a 31-year-old male presents emergency department today complaining of chest pain. Patient states that he has had chest pain on the left anterior part of his chest that is also associated with the left part of the shoulder left part of his arm and left neck. Patient states this pain is constant as a dull burning. Worse with movement. He has had these symptoms for a least 7 days but feels this is more severe now and yesterday. Denies PMH PSH for ASD repair as a child SH: nonsmoker TRAVEL OUTSIDE OF THE [place] IN LAST 30 DAYS: No - Related Data Allergies/Adverse Reactions: No Known Allergies Allergy (Verified 08/02/16 15:39) Past Medical History - General Information source: Patient - Social History Smoking Status: Never Smoker Chew tobacco use (# tins/day): No Frequency of alcohol use: None Drug Abuse: None Family History: CVA, DM, Hyperlipidemia, Hypertension, Thyroid Disfunction Patient has suicidal ideation: No Patient has homicidal ideation: No Pulmonary Medical History: Reports: Hx Bronchitis Neurological Medical History: Reports: Hx Migraine Renal/ Medical History: Denies: Hx Peritoneal Dialysis Psychiatric Medical History: Reports: Hx Anxiety, Hx Depression Past Surgical History: Reports: Hx Cardiac Surgery - open heart for ASD (1987), Hx Oral Surgery - Immunizations Immunizations up to date: Yes Hx Diphtheria, Pertussis, Tetanus Vaccination: Yes Review of Systems - Review of Systems Constitutional: No symptoms reported EENT: No symptoms reported Cardiovascular: See HPI Respiratory: No symptoms reported Gastrointestinal: No symptoms reported Genitourinary: No symptoms reported Male Genitourinary: No symptoms reported Musculoskeletal: See HPI Skin: No symptoms reported Hematologic/Lymphatic: No symptoms reported Neurological/Psychological: Headaches - tension Physical Exam - Vital signs Vitals: Temp Pulse Resp BP Pulse Ox 97.9 F 83 24 H 129/72 H 96 08/02/16 15:38 08/02/16 15:38 08/02/16 15:38 08/02/16 15:38 08/02/16 15:38 - Notes Notes: PHYSICAL EXAM GENERAL: Alert, interacts well. HEAD: Normocephalic, atraumatic. EYES: Pupils equal, round, and reactive to light. Extraocular movements intact. ENT: Oral mucosa moist, tongue midline. NECK: Full range of motion. Supple. Trachea midline. LUNGS: Clear to auscultation bilaterally, no wheezes, rales, or rhonchi. No respiratory distress. CHEST: pain reproducible to palpation of the left anterior chest, into his shoulder, along trapezius and into his neck. HEART: Regular rate and rhythm. No murmurs, gallops, or rubs. ABDOMEN: Soft, nondistended, nontender. No guarding, rebound, or rigidity.. Bowel sounds present in all 4 quadrants. EXTREMITIES: Moves all 4 extremities spontaneously. No edema, radial and dorsalis pedis pulses 2/4 bilaterally. No cyanosis. NEUROLOGICAL: Alert and oriented x4. Normal speech. PSYCH: Normal affect, normal mood. SKIN: Warm, dry, normal turgor. No rashes or lesions noted. Course - Re-evaluation Re-evalutation: 08/02/16 18:42 Patient is very well in appearance, vitals within normal limits. Low clinical suspicion for ACS given clinical history, exam, EKG without ST elevations or depressions, and negative initial troponin. HEART score less than or equal to 3. PE also seems unlikely given clinical history, absence of tachycardia or dyspnea. Well's score of 0. CXR without evidence of pneumothorax or pneumonia. No widened mediastinum. Aortic dissection also seems unlikely given history, symmetric pulses, CXR, and vitals. At this time will discharge with return precautions and follow-up recommendations. Verbal discharge instructions given a the bedside and opportunity for questions given. Medication warnings reviewed. Patient is in agreement with this plan and has verbalized understanding of return precautions and the need for primary care follow-up in the next 24-72 hours. His symptoms are consistent with chest wall pain. 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 His pain is worse after work. Discussion about his ergonomics reveal his posture is likely the culprit of his symptoms. - Vital Signs Vital signs: Temp Pulse Resp BP Pulse Ox 97.9 F 83 24 H 129/72 H 96 08/02/16 15:38 08/02/16 15:38 08/02/16 15:38 08/02/16 15:38 08/02/16 15:38 - Diagnostic Test Radiology reviewed: Image reviewed, Reports reviewed - EKG Interpretation by Me EKG shows normal: Sinus rhythm Rate: Normal Rhythm: NSR When compared to previous EKG there are: No significant change Discharge - Discharge Clinical Impression: Chest wall pain Shoulder pain Qualifiers: Laterality: left Chronicity: chronic Qualified Code(s): M25.512 - Pain in left shoulder Condition: Good Disposition: HOME, SELF-CARE Instructions: Anti-Inflammatory Medication ([facility]), Chest Wall Pain ([facility]) Prescriptions: Ibuprofen [Motrin 800 mg Tablet] 800 mg PO Q8H PRN #30 tab PRN Reason: Referrals: [facility] [NO LOCAL MD] - Follow up as needed CHEN LOBO MD [NO LOCAL MD] - Follow up as needed
--- NOTE | 2016-08-02 20:02 | EKG REPORT ---
SEVERITY:- NORMAL ECG - SINUS RHYTHM : Confirmed by: Rhea Pena 02-Aug-2016 20:01:43
== END 2016-08-02 16:54 | disposition home or self-care (01) ==
LOC: ER 15:17
DX: R07.89 Other chest pain (principal); M25.512 Pain in left shoulder; G44.209 Tension-type headache, unspecified, not intractable
CPT/HCPCS: 71020; 93005; 93010; 99285

== ENCOUNTER 2016-08-12 14:05 | Emergency (ER) | payer SELFPAY ==
--- NOTE | 2016-08-12 14:21 | ER Document Report ---
ED Medical Screen (RME) - General Stated Complaint: ABSCESS Notes: 31 yo male c/o painful swelling to buttock. + hx/o pilonidal cyst. last drained May. has not been able to follow up with surgery. no fever TRAVEL OUTSIDE OF THE [place] IN LAST 30 DAYS: No - Related Data Allergies/Adverse Reactions: No Known Allergies Allergy (Verified 08/12/16 14:19) Past Medical History Pulmonary Medical History: Reports: Hx Bronchitis Neurological Medical History: Reports: Hx Migraine Renal/ Medical History: Denies: Hx Peritoneal Dialysis Psychiatric Medical History: Reports: Hx Anxiety, Hx Depression Past Surgical History: Reports: Hx Cardiac Surgery - open heart for ASD (1987), Hx Oral Surgery - Immunizations Immunizations up to date: Yes Hx Diphtheria, Pertussis, Tetanus Vaccination: Yes Physical Exam - Vital signs Vitals: Temp Pulse Resp BP Pulse Ox 98.7 F 78 18 125/80 96 08/12/16 14:11 08/12/16 14:11 08/12/16 14:11 08/12/16 14:11 08/12/16 14:11 Course - Vital Signs Vital signs: Temp Pulse Resp BP Pulse Ox 98.7 F 78 18 125/80 96 08/12/16 14:11 08/12/16 14:11 08/12/16 14:11 08/12/16 14:11 08/12/16 14:11
[2016-08-12] MEDS ORDERED: OXYCODONE-ACETAMINOPHEN 5-325 MG TABLET PO ONE (18:30)
--- NOTE | 2016-08-12 20:21 | ER Document Report ---
ED Skin Rash/Insect Bite/Abscs - General Mode of Arrival: Ambulatory Information source: Patient TRAVEL OUTSIDE OF THE [place] IN LAST 30 DAYS: No - HPI Patient complains to provider of: Other - abscess Onset: Other - 5 days <FANY SALES - Last Filed: 08/12/16 21:04> <LISA PERAZA - Last Filed: 08/13/16 03:16> - General Chief Complaint: Abscess Stated Complaint: ABSCESS Notes: Patient is a 31 year old male who presents to the emergency department complaining of a pilonidal abscess. Patient states that he last had the abscess drained in May and it started bothering him about 5 days ago. Patient states the abscess is recurrent for the past few years and that he has been referred to a surgeon but has not followed up due to insurance problems. Patient denies fever. (FANY SALES) - Related Data Allergies/Adverse Reactions: No Known Allergies Allergy (Verified 08/12/16 14:19) Past Medical History - General Information source: Patient - Social History Smoking Status: Never Smoker Chew tobacco use (# tins/day): No Frequency of alcohol use: None Drug Abuse: None Family History: Reviewed & Not Pertinent, CVA, DM, Hyperlipidemia, Hypertension , Thyroid Disfunction Patient has suicidal ideation: No Patient has homicidal ideation: No Pulmonary Medical History: Reports: Hx Bronchitis Neurological Medical History: Reports: Hx Migraine Psychiatric Medical History: Reports: Hx Anxiety, Hx Depression Past Surgical History: Reports: Hx Cardiac Surgery - open heart for ASD (1987), Hx Oral Surgery - Immunizations Immunizations up to date: Yes Hx Diphtheria, Pertussis, Tetanus Vaccination: Yes <FANY SALES - Last Filed: 08/12/16 21:04> Review of Systems - Review of Systems Constitutional: denies: Fever EENT: No symptoms reported Cardiovascular: No symptoms reported Respiratory: No symptoms reported Gastrointestinal: No symptoms reported Genitourinary: No symptoms reported Male Genitourinary: No symptoms reported Musculoskeletal: No symptoms reported Skin: See HPI, Other - abscess Hematologic/Lymphatic: No symptoms reported Neurological/Psychological: No symptoms reported -: Yes All other systems reviewed and negative <FANY SALES - Last Filed: 08/12/16 21:04> Physical Exam - Vital signs Interpretation: Normal - General General appearance: Appears well, Alert - HEENT Head: Normocephalic, Atraumatic - Respiratory Respiratory status: No respiratory distress - Extremities General upper extremity: Normal inspection General lower extremity: Normal inspection - Neurological Neuro grossly intact: Yes Cognition: Normal Orientation: AAOx4 [place] Coma Scale Eye Opening: Spontaneous [place] Coma Scale Verbal: Oriented [place] Coma Scale Motor: Obeys Commands Sidra Coma Scale Total: 15 Speech: Normal - Psychological Associated symptoms: Normal affect, Normal mood - Skin Skin Temperature: Warm Skin Moisture: Dry Skin Color: Normal Skin irregularity: Abscess - pilonidal abscess, right greater than left, 3cm long by 2cm wide, fluctuant and tender to palpation, no surrounding erythema <FANY SALES - Last Filed: 08/12/16 21:04> Course <FANY SALES - Last Filed: 08/12/16 21:04> <LISA PERAZA - Last Filed: 08/13/16 03:16> - Re-evaluation Re-evalutation: 08/12 Patient with pilonidal abscess that he has had is a recurrence. Patient has had the abscess drained here in the emergency department. Old micro-reviewed and patient will be started on Keflex and Bactrim. Surgery consult stated the patient is to follow-up in the office after the infection has cleared for excision of his pilonidal cyst. Patient understands and agrees with this plan. Stable for discharge home. Wound culture sent. (LISA PERAZA) - Vital Signs Vital signs: Temp Pulse Resp BP Pulse Ox 98.0 F 72 16 126/73 H 97 08/12/16 22:18 08/12/16 22:18 08/12/16 22:18 08/12/16 22:18 08/12/16 22:18 Procedures - Incision and Drainage Buttock Type: Complex Anesthetic type: 1% Lidocaine, 0.5% Bupivacaine Blade size: 11 I&D procedure: Betadine prep applied Incision Method: Incision made by scalpel Amount/type of drainage: 25cc purulent d/c <LISA PERAZA - Last Filed: 08/13/16 03:16> - Incision and Drainage Buttock Notes: Tolerated well. Sent for culture. (LISA PERAZA) Discharge <FANY SALES - Last Filed: 08/12/16 21:04> <LISA PERAZA - Last Filed: 08/13/16 03:16> - Discharge Clinical Impression: Pilonidal abscess Condition: Stable Disposition: HOME, SELF-CARE Instructions: Post Incision and Drainage, Abscess ([facility]) Additional Instructions: Please take antibiotics as instructed. Please return within 48 hours for wound reevaluation. Return sooner if you have any further concerns. Please follow-up with a surgeon after this is healed for excision of pilonidal cyst. Prescriptions: Cephalexin Monohydrate [Keflex 500 mg Capsule] 500 mg PO QID #40 capsule Sulfamethoxazole/Trimethoprim [Bactrim Ds Tablet] 1 each PO BID #20 tablet Forms: Return to Work Referrals: REYES JC MD [ACTIVE STAFF] - Follow up as needed Scribe Attestation: 08/13/16 03:16 I personally performed the services described in the documentation, reviewed and edited the documentation which was dictated to the scribe in my presence, and it accurately records my words and actions. (LISA PERAZA) Scribe Documentation - Scribe Written by Neil:: neil Pham, 08/12/16, 2113 acting as scribe for :: Loni <FANY SALES - Last Filed: 08/12/16 21:04>
[2016-08-12] MEDS ORDERED: BUPIVACAINE HCL 0.25 % INJ/PF (2.5 MG/1 ML) 30 ML VIAL INJ ONE (21:10)
[2016-08-12] MEDS ORDERED: SULFAMETHOXAZOLE/TRIMETHOPRIM 800-160 MG TABLET PO ONE (21:42)
[2016-08-12] MEDS ORDERED: CEPHALEXIN 500 MG CAPSULE PO ONE (21:42)
[2016-08-12] MEDS ORDERED: LIDOCAINE 1% INJ-PF (10 MG/ML) 30 ML SDV INJ ONE (21:44)
[2016-08-12] MEDS ORDERED: CEFTRIAXONE INJ 1000 MG VIAL IM ONE (21:44)
[2016-08-13 02:53] VITALS: BP 126/73
== END 2016-08-12 22:20 | disposition home or self-care (01) ==
LOC: ER 14:05
PROC: 0H98XZZ Drainage of Buttock Skin, External Approach (ICD-10-PCS; principal; 2016-08-12)
DX: L05.01 Pilonidal cyst with abscess (principal)
CPT/HCPCS: 10080; 99283; 96372; 87070; 87205; 87075; 87077; J3490; J0696

== ENCOUNTER 2016-08-14 11:39 | Emergency (ER) | payer SELFPAY ==
[2016-08-14 12:01] VITALS: BP 133/74
--- NOTE | 2016-08-14 12:03 | ER Document Report ---
ED Medical Screen (RME) - General Stated Complaint: FOLLOW UP/ABSCESS Notes: Patient states he was here Wednesday and had a pilonidal cyst drainage. Is here for follow-up and repacking. States the area is still draining. I have greeted and performed a rapid initial assessment of this patient. A comprehensive ED assessment and evaluation of the patient, analysis of test results and completion of the medical decision making process will be conducted by additional ED providers. TRAVEL OUTSIDE OF THE [place] IN LAST 30 DAYS: No - Related Data Allergies/Adverse Reactions: No Known Allergies Allergy (Verified 08/12/16 14:19) Past Medical History Pulmonary Medical History: Reports: Hx Bronchitis Neurological Medical History: Reports: Hx Migraine Renal/ Medical History: Denies: Hx Peritoneal Dialysis Psychiatric Medical History: Reports: Hx Anxiety, Hx Depression Past Surgical History: Reports: Hx Cardiac Surgery - open heart for ASD (1987), Hx Oral Surgery - Immunizations Immunizations up to date: Yes Hx Diphtheria, Pertussis, Tetanus Vaccination: Yes Physical Exam - Vital signs Vitals: Temp Pulse Resp BP Pulse Ox 97.9 F 88 18 133/74 H 96 08/14/16 12:00 08/14/16 12:00 08/14/16 12:00 08/14/16 12:00 08/14/16 12:00 Course - Vital Signs Vital signs: Temp Pulse Resp BP Pulse Ox 97.9 F 88 18 133/74 H 96 08/14/16 12:00 08/14/16 12:00 08/14/16 12:00 08/14/16 12:00 08/14/16 12:00
--- NOTE | 2016-08-14 15:38 | ER Document Report ---
HPI - HPI Patient complains to provider of: pilonidal abscess recheck Onset: Other - Wednesday Onset/Duration: Better Pain Level: 3 Context: 31-year-old male here for pilonidal abscess recheck. It was incised on Wednesday and packing was placed in it. He states it is less sore and feels less swollen. No fever Associated Symptoms: None Exacerbated by: Denies Relieved by: Denies Similar symptoms previously: Yes Recently seen / treated by doctor: Yes - ROS ROS below otherwise negative: Yes Systems Reviewed and Negative: Yes All other systems reviewed and negative - REPRODUCTIVE Reproductive: DENIES: : - DERM Skin Color: Normal Past Medical History - General Information source: Patient - Social History Smoking Status: Never Smoker Chew tobacco use (# tins/day): No Frequency of alcohol use: None Drug Abuse: None Lives with: Family Family History: Reviewed & Not Pertinent, CVA, DM, Hyperlipidemia, Hypertension , Thyroid Disfunction Pulmonary Medical History: Reports: Hx Bronchitis Neurological Medical History: Reports: Hx Migraine Renal/ Medical History: Denies: Hx Peritoneal Dialysis Psychiatric Medical History: Reports: Hx Anxiety, Hx Depression Past Surgical History: Reports: Hx Cardiac Surgery - open heart for ASD (1987), Hx Oral Surgery - Immunizations Immunizations up to date: Yes Hx Diphtheria, Pertussis, Tetanus Vaccination: Yes Vertical Provider Document - CONSTITUTIONAL Agree With Documented VS: Yes Exam Limitations: No Limitations - INFECTION CONTROL TRAVEL OUTSIDE OF THE [place] IN LAST 30 DAYS: No - HEENT HEENT: Normocephalic - NECK Neck: Supple - RESPIRATORY Respiratory: Breath Sounds Normal, No Respiratory Distress O2 Sat by Pulse Oximetry: 96 - CARDIOVASCULAR Cardiovascular: Regular Rate, Regular Rhythm - NEURO Level of Consciousness: Awake, Alert - DERM Integumentary: Warm, Dry, Abscess - Packing removed no exudate dry dressing applied Course - Vital Signs Vital signs: Temp Pulse Resp BP Pulse Ox 97.9 F 88 18 133/74 H 96 08/14/16 12:00 08/14/16 12:00 08/14/16 12:00 08/14/16 12:00 08/14/16 12:00 Discharge - Discharge Clinical Impression: abscess recheck Condition: Good Disposition: HOME, SELF-CARE Instructions: Abscess ([facility]) Additional Instructions: Wash vigorously in the shower with a washcloth and soap and water Dry dressing Return if any concerns Finished antibiotics Please complete the patient satisfaction survey if you get one, and return it.. If you do not receive a survey, then you can go to the [facility] website, [email or web address] and place your comments about your very good care. Thank you very much. It was a pleasure being your medical provider today.
== END 2016-08-14 15:59 | disposition home or self-care (01) ==
LOC: ER 11:39
DX: L05.01 Pilonidal cyst with abscess (principal)
CPT/HCPCS: 99282

== ENCOUNTER 2016-08-19 08:42 | Emergency (ER) | payer SELFPAY ==
[2016-08-19] MEDS ORDERED: DEXAMETHASONE SOD PHOS INJ 10 MG/1 ML VIAL IM ONE (09:45)
--- NOTE | 2016-08-19 09:48 | ER Document Report ---
ED Allergic Reaction - General Time seen by provider: 09:30 Mode of Arrival: Ambulatory Information source: Patient TRAVEL OUTSIDE OF THE [place] IN LAST 30 DAYS: No - HPI Onset: Other - see HPI note Similar symptoms previously: No Recently seen / treated by doctor: No - General Chief Complaint: Allergic Reaction Stated Complaint: POSSIBLE ALLERGIC REACTION Notes: Patient is a 31 year old male presenting to the ED for a possible allergic reaction. Patient states he was seen in the ED last for an abscess. Patient was given bactrim and keflex to take for his abscess. Patient states last night he has some itchiness to his trunk and extremities, mild swelling, reddness/hives to his skin, and some tightness or swelling to his throat. Patient states that he took benadryl at 08:00 this morning. Patient is allergic to cephalexin, sulfamethoxazole, and trimethoprim. (LARRY AJ) - Related Data Allergies/Adverse Reactions: cephalexin [From Keflex] Allergy (Verified 08/19/16 08:49) sulfamethoxazole [From Bactrim] Allergy (Verified 08/19/16 08:49) trimethoprim [From Bactrim] Allergy (Verified 08/19/16 08:49) Past Medical History - General Information source: Patient - Social History Smoking Status: Unknown if Ever Smoked Chew tobacco use (# tins/day): No Frequency of alcohol use: None Drug Abuse: None Family History: Reviewed & Not Pertinent, CVA, DM, Hyperlipidemia, Hypertension , Thyroid Disfunction Patient has suicidal ideation: No Patient has homicidal ideation: No Pulmonary Medical History: Reports: Hx Bronchitis Neurological Medical History: Reports: Hx Migraine Psychiatric Medical History: Reports: Hx Anxiety, Hx Depression Past Surgical History: Reports: Hx Cardiac Surgery - open heart for ASD (1987), Hx Oral Surgery - Immunizations Immunizations up to date: Yes Hx Diphtheria, Pertussis, Tetanus Vaccination: Yes Review of Systems - Review of Systems Constitutional: No symptoms reported EENT: No symptoms reported Cardiovascular: No symptoms reported Respiratory: No symptoms reported Gastrointestinal: No symptoms reported Genitourinary: No symptoms reported Male Genitourinary: No symptoms reported Musculoskeletal: No symptoms reported Skin: See HPI Hematologic/Lymphatic: No symptoms reported Neurological/Psychological: No symptoms reported -: Yes All other systems reviewed and negative Physical Exam - Vital signs Interpretation: Normal - General General appearance: Appears well, Alert In distress: Mild - HEENT Head: Normocephalic, Atraumatic Eyes: Normal Pupils: PERRL Mucous membranes: Moist - Respiratory Respiratory status: No respiratory distress Chest status: Nontender Breath sounds: Normal Chest palpation: Normal - Cardiovascular Rhythm: Regular Heart sounds: Normal auscultation Murmur: No - Abdominal Distension: No distension Bowel sounds: Normal Tenderness: Nontender Organomegaly: No organomegaly - Back Back: Normal, Nontender - Extremities General upper extremity: Normal inspection, Normal ROM, Normal strength General lower extremity: Normal inspection, Normal ROM, Normal strength - Neurological Neuro grossly intact: Yes Cognition: Normal Orientation: AAOx4 [place] Coma Scale Eye Opening: Spontaneous Sidra Coma Scale Verbal: Oriented Sidra Coma Scale Motor: Obeys Commands [place] Coma Scale Total: 15 Speech: Normal Sensory: Normal - Psychological Associated symptoms: Normal affect, Normal mood - Skin Skin Temperature: Warm Skin Moisture: Dry Skin Color: Other - red patchy areas on the extremites and truncal region Course - Re-evaluation Re-evalutation: 08/19/16 09:51 I personally performed the services described in the documentation, reviewed and edited the documentation which was dictated to my scribe in my presence, and it accurately records my words and actions. presents emergency from HE red rash on his chest and his arms. Notify any breathing swallowing tongue with uvular swelling no respiratory distress or GI upset. On physical examination no active swelling shortness of breath stridor. He has a vague nondescript urticarial rash on his upper extremities and trunk no petechiae or purpura. Go ahead and stop Bactrim and Keflex and assume the both could be the culprit in terms of allergies. Given a shot of Decadron he is using Benadryl at home with relief of itching. Start him on clindamycin. Follow up with his primary care physician one to 2 days and discussed reasons Fredia return sooner (IVAN NG) - Vital Signs Vital signs: Temp Pulse Resp BP Pulse Ox 98.4 F 75 16 112/63 96 08/19/16 10:38 08/19/16 10:38 08/19/16 08:49 08/19/16 10:38 08/19/16 10:38 Discharge - Discharge Clinical Impression: Acute allergic reaction Qualifiers: Encounter type: initial encounter Qualified Code(s): T78.40XA - Allergy, unspecified, initial encounter Condition: Stable Disposition: HOME, SELF-CARE Additional Instructions: Medication reaction allergy We stop any unnecessary drugs when bothersome side effects occur. Please immediately stop the Bactrim and Keflex. Sometimes we'll substitute a different type of drug. We are going to start her on clindamycin. Call us if the symptoms don't go away. We also gave me some steroids injection here in the emergency department when she follow up with her primary care physician one to 2 days and return immediately for increasing worsening or new symptoms Prescriptions: Clindamycin HCl 300 mg PO BID #14 capsule Prednisone [Deltasone 20 mg Tablet] 3 tab PO DAILY 5 Days Forms: Return to Work Scribe Documentation - Scribe Written by Gage:: Larry Aj 08/19/16 12:00 acting as scribe for :: Darnell
[2016-08-19 10:41] VITALS: BP 112/63
== END 2016-08-19 10:38 | disposition home or self-care (01) ==
LOC: ER 08:42
DX: L50.0 Allergic urticaria (principal)
CPT/HCPCS: 99283; 96372; J1100

== ENCOUNTER 2016-09-02 12:04 | Emergency (ER) | payer SELFPAY ==
[2016-09-02 12:14] VITALS: BP 134/80
--- NOTE | 2016-09-02 12:51 | ER Document Report ---
ED Psych Disorder / Suicide - General Chief Complaint: Anxiety Stated Complaint: ANXIETY PROBLEM Notes: The patient is a 31-year-old male, past medical history anxiety, ASD repair when he was 3, presents with 2 days of increasing anxiety because it is the anniversary of his father's . He says that when he begins to feel anxious , he feels a dull lower sternal pain that resolves when he is able to calm down. He has not been on any anxiety medications for the past 3 years because he lost insurance. He is currently not having any chest pain and denies suicidality, homicidal ideation, back pain, shortness of breath, nausea, vomiting, leg swelling, fevers or chills. TRAVEL OUTSIDE OF THE [place] IN LAST 30 DAYS: No - Related Data Allergies/Adverse Reactions: cephalexin [From Keflex] Allergy (Verified 09/02/16 12:10) sulfamethoxazole [From Bactrim] Allergy (Verified 09/02/16 12:10) trimethoprim [From Bactrim] Allergy (Verified 09/02/16 12:10) Past Medical History - General Information source: Patient - Social History Smoking Status: Never Smoker Chew tobacco use (# tins/day): No Frequency of alcohol use: None Drug Abuse: None Family History: Reviewed & Not Pertinent, CVA, DM, Hyperlipidemia, Hypertension , Thyroid Disfunction Patient has suicidal ideation: No Patient has homicidal ideation: No Pulmonary Medical History: Reports: Hx Bronchitis Neurological Medical History: Reports: Hx Migraine Renal/ Medical History: Denies: Hx Peritoneal Dialysis Psychiatric Medical History: Reports: Hx Anxiety, Hx Depression Past Surgical History: Reports: Hx Cardiac Surgery - open heart for ASD (1987), Hx Oral Surgery - Immunizations Immunizations up to date: Yes Hx Diphtheria, Pertussis, Tetanus Vaccination: Yes Review of Systems - Review of Systems Notes: REVIEW OF SYSTEMS: CONSTITUTIONAL: -fevers, -chills EENT: -eye pain, -difficulty swallowing, -nasal congestion CARDIOVASCULAR: +chest pain, -syncope. RESPIRATORY: -cough, -SOB GASTROINTESTINAL: -abdominal pain, - nausea, -vomiting, -diarrhea GENITOURINARY: -dysuria, -hematuria MUSCULOSKELETAL: -back pain, -neck pain SKIN: -rash or skin lesions. HEMATOLOGIC: -easy bruising or bleeding. LYMPHATIC: -swollen, enlarged glands. NEUROLOGICAL: -altered mental status or loss of consciousness, -headache, - neurologic symptoms PSYCHIATRIC: +anxiety, -depression. ALL OTHER SYSTEMS REVIEWED AND NEGATIVE. Physical Exam - Vital signs Vitals: Temp Pulse Resp BP Pulse Ox 98.6 F 84 22 H 134/80 H 97 09/02/16 12:10 09/02/16 12:10 09/02/16 12:10 09/02/16 12:10 09/02/16 12:10 - Notes Notes: PHYSICAL EXAMINATION: GENERAL: Well-appearing, well-nourished and in no acute distress. HEAD: Atraumatic, normocephalic. EYES: Pupils equal round and reactive to light, extraocular movements intact, sclera anicteric, conjunctiva are normal. ENT: nares patent, oropharynx clear without exudates. Moist mucous membranes. NECK: Normal range of motion, supple without lymphadenopathy LUNGS: Breath sounds clear to auscultation bilaterally and equal. No wheezes rales or rhonchi. HEART: Regular rate and rhythm without murmurs ABDOMEN: Soft, nontender, normoactive bowel sounds. No guarding, no rebound. No masses appreciated. EXTREMITIES: Normal range of motion, no pitting or edema. No cyanosis. NEUROLOGICAL: Cranial nerves grossly intact. Normal speech, normal gait. Normal sensory, motor, and reflex exams. PSYCH: Normal mood, normal affect. SKIN: Warm, Dry, normal turgor, no rashes or lesions noted. Course - Re-evaluation Re-evalutation: Pt's EKG does not show any signs of active ischemia. Symptoms atypical for ACS , PE or aortic dissection at this time. HEART score 0. PERC negative. Provided patient with outpatient referral to mental health for further treatment of his anxiety. Given return precautions and he understands. - Vital Signs Vital signs: Temp Pulse Resp BP Pulse Ox 98.6 F 84 22 H 134/80 H 97 09/02/16 12:10 09/02/16 12:10 09/02/16 12:10 09/02/16 12:10 09/02/16 12:10 - EKG Interpretation by Nm EKG shows normal: Sinus rhythm, [place], Intervals, QRS Complexes, ST-T Waves Rate: Normal Discharge - Discharge Clinical Impression: Anxiety Chest pain Qualifiers: Chest pain type: unspecified Qualified Code(s): R07.9 - Chest pain, unspecified Condition: Stable Disposition: HOME, SELF-CARE Instructions: Anxiety ([facility]) Additional Instructions: CHEST PAIN OF UNCLEAR CAUSE: The exact cause of your chest pain isn't clear. Fortunately, there is no evidence of a dangerous medical condition. Further testing may be required to find the source of the pain. Most often, we find that this pain is coming from the chest wall -- the muscles or rib joints in the chest. But chest pain can come from the lung and lung lining, the esophagus, the heart valves or heart lining, and even the stomach or gallbladder. Rest. Eat lightly until the pain is gone. We may prescribe medicine for pain and inflammation. You should call the physician immediately if the pain radiates to the shoulder, jaw or arms; if you start to run a fever or develop a cough; or if you develop shortness of breath, or other new or alarming symptoms. NORMAL EXAM AND WORKUP: At this time, your examination and workup show no significant abnormality. No significant abnormal physical findings were noted. All laboratory, EKG, and imaging (x-ray, CT scans, ultrasound) studies that were ordered show no significant abnormality. Although your examination and all studies that were ordered showed no significant abnormal finding, there are no examinations and no studies that are 100% accurate. There is always the possibility that some abnormality could exist and not be detected with physical examination or within the limits and capabilities of laboratory and other studies. You should return or follow up as you were instructed on your visit today for further evaluation if your symptoms do not resolve. CHEST WALL PAIN: Your chest pain may be coming from the chest wall. This is often caused by straining the muscles or joints in the chest during physical activity, direct trauma, coughing, or vigorous vomiting. Persons with arthritis are especially prone to this type of pain, due to inflammation of the cartilage joints near the breast bone. Occasionally, no cause can be found. Rest from strenuous physical activity. This kind of chest pain is usually made worse by movement of the chest. Depending on the symptoms, we may prescribe medicine for pain, muscle relaxation, and antiinflammatory effects. If the pain is new, and seems to be due to muscle strain, cold packs can help. Otherwise, apply gentle warmth to the painful area for 15 minutes every hour or two. You should call contact the doctor immediately if things change. Further evaluation is needed if you develop a fever or cough, if the nature of the pain changes, or if you become short of breath. FOLLOW-UP CARE: If you have been referred to a physician for follow-up care, call the physician s office for an appointment as you were instructed or within the next two days. If you experience worsening or a significant change in your symptoms, notify the physician immediately or return to the Emergency Department at any time for re-evaluation. Anxiety The physician feels that some of your health problems are being caused by anxiety. Anxiety affects your health in many ways. Anxiety alone can cause palpitations, sweats, chest pains, abdominal pains, shortness of breath, and headaches. It contributes to ulcer disease, high blood pressure, irritable bowel syndrome, and has been shown to cause flare-ups of many other diseases. Anxiety is not a simple disorder to treat. If the anxiety is due to recent life stresses, you may simply need time to "work through" the changes. If the anxiety is due to an underlying unhappiness with yourself or due to psychiatric disturbance, professional help will be needed. Your physician can refer you for further help if needed. Anti-anxiety medication is occasionally given if the stress is acute or if you are having trouble sleeping. Chronic or frequent use of these medications is not a good idea because the body becomes reliant on it, preventing you from dealing with life's normal stresses. Referrals: [facility] [Outside] - Follow up as needed
--- NOTE | 2016-09-02 19:04 | EKG REPORT ---
SEVERITY:- NORMAL ECG - SINUS RHYTHM : Confirmed by: Timmy Gan MD 02-Sep-2016 19:03:06
== END 2016-09-02 12:56 | disposition home or self-care (01) ==
LOC: ER 12:04
DX: F41.9 Anxiety disorder, unspecified (principal); R07.9 Chest pain, unspecified; Z88.3 Allergy status to other anti-infective agents
CPT/HCPCS: 93005; 93010; 99283

== ENCOUNTER 2016-09-03 12:29 | Emergency (ER) | payer SELFPAY ==
[2016-09-03 12:45] VITALS: BP 126/69
[2016-09-03 13:24] LABS: ABSOLUTE BASOPHILS # (AUTO) 0.1 10^3/uL (0.0-0.2); ABSOLUTE EOSINOPHILS # (AUTO) 0.2 10^3/uL (0.0-0.6); ABSOLUTE LYMPHOCYTES (AUTO) 2.9 10^3/uL (0.5-4.7); ABSOLUTE MONOCYTES (AUTO) 0.7 10^3/uL (0.1-1.4); ABSOLUTE NEUT (AUTO) 3.7 10^3/uL (1.7-8.2); BASOPHILS % (AUTO) 0.7 % (0-2); EOSINOPHILS % (AUTO) 2.1 % (0-6); HEMATOCRIT 39.9 % (37.9-51.0); HEMOGLOBIN 13.8 g/dL (13.5-17.0); HGB HCT DIFFERENCE 1.5; LYMPHOCYTES % (AUTO) 38.8 % (13-45); MEAN CORPUSCULAR HGB CONC 34.5 g/dL (32.0-36.0); MEAN CORPUSCULAR VOLUME 81 fl (80-97); MONOCYTES % (AUTO) 9.3 % (3-13); RED BLOOD COUNT 4.93 10^6/uL (4.35-5.55); RED CELL DISTRIBUTION WIDTH 14.1 % (11.5-14.0); SEGMENTED NEUTROPHILS % (AUTO) 49.1 % (42-78); WHITE BLOOD COUNT 7.6 10^3/uL (4.0-10.5)
--- NOTE | 2016-09-03 13:29 | ER Document Report ---
ED General - General Chief Complaint: Dizziness Stated Complaint: CHEST PAIN,RAPID HEART RATE Notes: The patient is a 31-year-old male, past medical history anxiety, ASD repair when he was 3, presents with feeling like his heart is racing and that he is about to break down and cry. The anniversary of his father's is approaching. He has not taken any of his anxiety medications in 3 years. He was seen yesterday in the emergency room by myself for similar symptoms. The episodes last a few minutes and then resolved. While in the emergency room, he is feeling like his heart is racing, but his heart rate is only in the 70s. Denies back pain, shortness of breath, fevers, numbness, tingling, suicidal ideation or homicidal ideation. TRAVEL OUTSIDE OF THE [place] IN LAST 30 DAYS: No - Related Data Allergies/Adverse Reactions: cephalexin [From Keflex] Allergy (Verified 09/03/16 12:53) sulfamethoxazole [From Bactrim] Allergy (Verified 09/03/16 12:53) trimethoprim [From Bactrim] Allergy (Verified 09/03/16 12:53) Past Medical History - General Information source: Patient - Social History Smoking Status: Never Smoker Family History: Reviewed & Not Pertinent, CVA, DM, Hyperlipidemia, Hypertension , Thyroid Disfunction Pulmonary Medical History: Reports: Hx Bronchitis Neurological Medical History: Reports: Hx Migraine Renal/ Medical History: Denies: Hx Peritoneal Dialysis Psychiatric Medical History: Reports: Hx Anxiety, Hx Depression Past Surgical History: Reports: Hx Cardiac Surgery - open heart for ASD (1987), Hx Oral Surgery - Immunizations Immunizations up to date: Yes Hx Diphtheria, Pertussis, Tetanus Vaccination: Yes Review of Systems - Review of Systems Notes: REVIEW OF SYSTEMS: CONSTITUTIONAL: -fevers, -chills EENT: -eye pain, -difficulty swallowing, -nasal congestion CARDIOVASCULAR: +chest pain, +palpitations, -syncope. RESPIRATORY: -cough, -SOB GASTROINTESTINAL: -abdominal pain, -nausea, -vomiting, -diarrhea GENITOURINARY: -dysuria, -hematuria MUSCULOSKELETAL: -back pain, -neck pain SKIN: -rash or skin lesions. HEMATOLOGIC: -easy bruising or bleeding. LYMPHATIC: -swollen, enlarged glands. NEUROLOGICAL: -altered mental status or loss of consciousness, -headache, - neurologic symptoms PSYCHIATRIC: +anxiety, -depression. ALL OTHER SYSTEMS REVIEWED AND NEGATIVE. Physical Exam - Vital signs Vitals: Temp Pulse Resp BP Pulse Ox 98.6 F 73 16 126/69 H 97 09/03/16 12:42 09/03/16 12:42 09/03/16 12:42 09/03/16 12:42 09/03/16 12:42 - Notes Notes: PHYSICAL EXAMINATION: GENERAL: Well-appearing, well-nourished and in no acute distress. HEAD: Atraumatic, normocephalic. EYES: Pupils equal round and reactive to light, extraocular movements intact, sclera anicteric, conjunctiva are normal. ENT: nares patent, oropharynx clear without exudates. Moist mucous membranes. NECK: Normal range of motion, supple without lymphadenopathy LUNGS: Breath sounds clear to auscultation bilaterally and equal. No wheezes rales or rhonchi. HEART: Regular rate and rhythm without murmurs ABDOMEN: Soft, nontender, normoactive bowel sounds. No guarding, no rebound. No masses appreciated. EXTREMITIES: Normal range of motion, no pitting or edema. No cyanosis. NEUROLOGICAL: Cranial nerves grossly intact. Normal speech, normal gait. Normal sensory, motor, and reflex exams. PSYCH: Normal mood, normal affect. SKIN: Warm, Dry, normal turgor, no rashes or lesions noted. Course - Re-evaluation Re-evalutation: With patient feeling like his heart is racing when his heart rate is in the 70s , do not suspect an arrhythmia at this time. EKG and labs are all unremarkable. Patient provided with follow-up at [facility] yesterday and has an appointment in 2 weeks. Will begin his trazodone and citalopram doses. Case management also saw patient and provided him with primary care referral in 3 weeks. Patient asymptomatic at this time and comfortable with plan. - Vital Signs Vital signs: Temp Pulse Resp BP Pulse Ox 98.6 F 73 16 126/69 H 97 09/03/16 12:42 09/03/16 12:42 09/03/16 12:42 09/03/16 12:42 09/03/16 12:42 - Laboratory Result Diagrams: 09/03/16 13:12 09/03/16 13:12 Laboratory results interpreted by me: 09/03/16 09/03/16 13:12 13:12 RDW 14.1 H Glucose 123 H Creatine Kinase 217 H - EKG Interpretation by Me EKG shows normal: Sinus rhythm, [place], Intervals, QRS Complexes, ST-T Waves Rate: Normal Discharge - Discharge Clinical Impression: Palpitations, Anxiety Condition: Good Disposition: HOME, SELF-CARE Additional Instructions: Anxiety The physician feels that some of your health problems are being caused by anxiety. Anxiety affects your health in many ways. Anxiety alone can cause palpitations, sweats, chest pains, abdominal pains, shortness of breath, and headaches. It contributes to ulcer disease, high blood pressure, irritable bowel syndrome, and has been shown to cause flare-ups of many other diseases. Anxiety is not a simple disorder to treat. If the anxiety is due to recent life stresses, you may simply need time to "work through" the changes. If the anxiety is due to an underlying unhappiness with yourself or due to psychiatric disturbance, professional help will be needed. Your physician can refer you for further help if needed. Anti-anxiety medication is occasionally given if the stress is acute or if you are having trouble sleeping. Chronic or frequent use of these medications is not a good idea because the body becomes reliant on it, preventing you from dealing with life's normal stresses. CHEST PAIN OF UNCLEAR CAUSE: The exact cause of your chest pain isn't clear. Fortunately, there is no evidence of a dangerous medical condition. Further testing may be required to find the source of the pain. Most often, we find that this pain is coming from the chest wall -- the muscles or rib joints in the chest. But chest pain can come from the lung and lung lining, the esophagus, the heart valves or heart lining, and even the stomach or gallbladder. Rest. Eat lightly until the pain is gone. We may prescribe medicine for pain and inflammation. You should call the physician immediately if the pain radiates to the shoulder, jaw or arms; if you start to run a fever or develop a cough; or if you develop shortness of breath, or other new or alarming symptoms. NORMAL EXAM AND WORKUP: At this time, your examination and workup show no significant abnormality. No significant abnormal physical findings were noted. All laboratory, EKG, and imaging (x-ray, CT scans, ultrasound) studies that were ordered show no significant abnormality. Although your examination and all studies that were ordered showed no significant abnormal finding, there are no examinations and no studies that are 100% accurate. There is always the possibility that some abnormality could exist and not be detected with physical examination or within the limits and capabilities of laboratory and other studies. You should return or follow up as you were instructed on your visit today for further evaluation if your symptoms do not resolve. CHEST WALL PAIN: Your chest pain may be coming from the chest wall. This is often caused by straining the muscles or joints in the chest during physical activity, direct trauma, coughing, or vigorous vomiting. Persons with arthritis are especially prone to this type of pain, due to inflammation of the cartilage joints near the breast bone. Occasionally, no cause can be found. Rest from strenuous physical activity. This kind of chest pain is usually made worse by movement of the chest. Depending on the symptoms, we may prescribe medicine for pain, muscle relaxation, and antiinflammatory effects. If the pain is new, and seems to be due to muscle strain, cold packs can help. Otherwise, apply gentle warmth to the painful area for 15 minutes every hour or two. You should call contact the doctor immediately if things change. Further evaluation is needed if you develop a fever or cough, if the nature of the pain changes, or if you become short of breath. FOLLOW-UP CARE: If you have been referred to a physician for follow-up care, call the physician s office for an appointment as you were instructed or within the next two days. If you experience worsening or a significant change in your symptoms, notify the physician immediately or return to the Emergency Department at any time for re-evaluation. Prescriptions: Trazodone HCl [Desyrel 50 mg Tablet] 50 mg PO QHS #14 tablet Citalopram Hydrobromide [Celexa] 1 tab PO DAILY #14 tablet Referrals: [facility] [Outside] - Follow up as needed [facility] [Outside] - Follow up as needed
--- NOTE | 2016-09-03 13:42 | EKG REPORT ---
SEVERITY:- NORMAL ECG - SINUS RHYTHM : Confirmed by: Timmy Gan MD 03-Sep-2016 13:42:08
[2016-09-03 13:47] LABS: ANION GAP 12 (5-19); BLOOD UREA NITROGEN 8 mg/dL (7-20); CALCIUM 9.1 mg/dL (8.4-10.2); CARBON DIOXIDE 28 mmol/L (22-30); CHLORIDE 104 mmol/L (98-107); CREATINE KINASE 217 U/L (55-170); CREATININE RESULT 0.78 mg/dL (0.52-1.25); GLUCOSE 123 mg/dL (75-110); SODIUM 143.7 mmol/L (137-145)
== END 2016-09-03 15:17 | disposition home or self-care (01) ==
LOC: ER 12:29
DX: F41.9 Anxiety disorder, unspecified (principal); R00.2 Palpitations; R07.9 Chest pain, unspecified; Z88.3 Allergy status to other anti-infective agents
CPT/HCPCS: 36415; 80048; 82550; 84443; 84484; 85025; 93005; 93010; 99285

== ENCOUNTER → 2016-09-25 | Outpatient (CLI) | payer OTHER ==
[2016-09-25 11:18] LABS: ALANINE AMINOTRANSFERASE 87 U/L (21-72); ALKALINE PHOSPHATASE 72 U/L (38-126); ASPARTATE AMINO TRANSFERASE 55 U/L (17-59); BILIRUBIN,DIRECT 0.2 mg/dL (0.0-0.4); BILIRUBIN,TOTAL 0.6 mg/dL (0.2-1.3); Direct HDL 45 mg/dL (>40); TOTAL PROTEIN 6.5 g/dL (6.3-8.2); TRIGLYCERIDES 64 mg/dL (<150)
[2016-09-25 11:34] LABS: DIRECT LDL 79 mg/dL (<100)
== END ==
LOC: CCC 09:55
DX: Z00.00 Encounter for general adult medical examination without abnormal findings (principal)
CPT/HCPCS: 36415; 80061; 80076; 83036; 84443

== ENCOUNTER 2016-09-29 10:33 | Emergency (ER) | payer OTHER ==
--- NOTE | 2016-09-29 10:53 | ER Document Report ---
HPI - HPI Patient complains to provider of: right ear irritation Onset: Other - 3 days Onset/Duration: Persistent Quality of pain: Achy Pain Level: 3 Context: Patient presents emergency department with complaints of right ear irritation. Patient reports that he uses headphones at work at [employer]. Patient also reports he's had a lot of earwax and has been using ear softening drops. Denies fever vomiting diarrhea. Denies trauma. Reports he has not been swimming. Associated Symptoms: None Exacerbated by: Denies Relieved by: Denies Similar symptoms previously: No Recently seen / treated by doctor: No - REPRODUCTIVE Reproductive: DENIES: : - DERM Skin Color: Normal, [place] Past Medical History - General Information source: Patient - Social History Smoking Status: Unknown if Ever Smoked Cigarette use (# per day): No Frequency of alcohol use: None Drug Abuse: None Occupation: [employer] Lives with: Family Family History: Reviewed & Not Pertinent, CVA, DM, Hyperlipidemia, Hypertension , Thyroid Disfunction Patient has suicidal ideation: No Pulmonary Medical History: Reports: Hx Bronchitis Neurological Medical History: Reports: Hx Migraine Renal/ Medical History: Denies: Hx Peritoneal Dialysis Psychiatric Medical History: Reports: Hx Anxiety, Hx Depression Past Surgical History: Reports: Hx Cardiac Surgery - open heart for ASD (1987), Hx Oral Surgery - Immunizations Immunizations up to date: Yes Hx Diphtheria, Pertussis, Tetanus Vaccination: Yes Vertical Provider Document - CONSTITUTIONAL Agree With Documented VS: Yes Exam Limitations: No Limitations General Appearance: WD/WN, No Apparent Distress - INFECTION CONTROL TRAVEL OUTSIDE OF THE [place] IN LAST 30 DAYS: No - HEENT HEENT: Atraumatic, Normocephalic. negative: Conjuctival Injection, Pharyngeal Exudate, Pharyngeal Tenderness, Pharyngeal Erythema, Tympanic Membrane Red - Soft ear wax noted, No impaction noted, Tympanic Membrane Bulging - NECK Neck: Normal Inspection, Supple. negative: Lymphadenopathy-Left, Lymphadenopathy-Right - RESPIRATORY Respiratory: Breath Sounds Normal, No Respiratory Distress O2 Sat by Pulse Oximetry: 97 - CARDIOVASCULAR Cardiovascular: Regular Rate, Regular Rhythm - MUSCULOSKELETAL/EXTREMETIES Musculoskeletal/Extremeties: MAEWKRYSTAL - NEURO Level of Consciousness: Awake, Alert, Appropriate Motor/Sensory: No Motor Deficit - DERM Integumentary: Warm, Dry Course - Re-evaluation Re-evalutation: 09/29/16 10:58 Patient was instructed to switch his headphone to the left he. Patient was also instructed to follow up with primary care provider for recheck within 1 week. He verbalized understanding to all instructions. - Vital Signs Vital signs: Temp Pulse Resp BP Pulse Ox 97.6 F 71 18 125/72 97 09/29/16 10:38 09/29/16 10:38 09/29/16 10:38 09/29/16 10:38 09/29/16 10:38 Discharge - Discharge Clinical Impression: Irritation of right ear, Elevated blood pressure reading Condition: Stable Disposition: HOME, SELF-CARE Additional Instructions: *You have been evaluated for ear irritation *Follow up with a primary care provider for recheck within one week *Return to ED for worsening condition, changes, needs Forms: Elevated Blood Pressure
[2016-09-29 11:03] VITALS: BP 125/70
== END 2016-09-29 11:03 | disposition home or self-care (01) ==
LOC: ER 10:33
DX: H92.01 Otalgia, right ear (principal); R03.0 Elevated blood-pressure reading, without diagnosis of hypertension
CPT/HCPCS: 99282

== ENCOUNTER 2017-02-22 13:25 | Emergency (ER) | payer SELFPAY ==
[2017-02-22 13:40] VITALS: BP 132/71
--- NOTE | 2017-02-22 14:58 | ER Document Report ---
HPI - HPI Patient complains to provider of: Left great toe pain Onset: Last week Onset/Duration: Persistent Quality of pain: Achy Pain Level: 3 Context: Patient states that he was trimming his nose and may have injured his toe last week. Patient complains of swelling, tenderness and drainage. Patient denies any fever. Patient denies any history of MRSA. Patient denies any previous history of ingrown toenails. Associated Symptoms: Other - Left great toe pain. denies: Fever Exacerbated by: Movement, Walking Relieved by: Denies Similar symptoms previously: No Recently seen / treated by doctor: No - ROS ROS below otherwise negative: Yes Systems Reviewed and Negative: Yes All other systems reviewed and negative - CONSTITUTIONAL Constitutional: DENIES: Fever, Chills - GASTROINTESTINAL Gastrointestinal: DENIES: Nausea - REPRODUCTIVE Reproductive: DENIES: : - MUSCULOSKELETAL Musculoskeletal: REPORTS: Extremity pain, Swelling - DERM Skin Color: Erythema Skin Problems: None Past Medical History - General Information source: Patient - Social History Smoking Status: Never Smoker Frequency of alcohol use: None Drug Abuse: None Occupation: None Lives with: Family Family History: Reviewed & Not Pertinent, CVA, DM, Hyperlipidemia, Hypertension , Thyroid Disfunction Patient has suicidal ideation: No Pulmonary Medical History: Reports: Hx Bronchitis Neurological Medical History: Reports: Hx Migraine Renal/ Medical History: Denies: Hx Peritoneal Dialysis Psychiatric Medical History: Reports: Hx Anxiety, Hx Depression Past Surgical History: Reports: Hx Cardiac Surgery - open heart for ASD (1987), Hx Oral Surgery - Immunizations Immunizations up to date: Yes Hx Diphtheria, Pertussis, Tetanus Vaccination: Yes Vertical Provider Document - CONSTITUTIONAL Agree With Documented VS: Yes Exam Limitations: No Limitations General Appearance: WD/WN, No Apparent Distress - INFECTION CONTROL TRAVEL OUTSIDE OF THE [place] IN LAST 30 DAYS: No - HEENT HEENT: Atraumatic, Normocephalic - NECK Neck: Normal Inspection - RESPIRATORY Respiratory: No Respiratory Distress O2 Sat by Pulse Oximetry: 97 - CARDIOVASCULAR Pulses: Normal: Dorsalis pedis - MUSCULOSKELETAL/EXTREMETIES Musculoskeletal/Extremeties: MAEW, Tender - Left great toe tenderness along lateral margin with mild swelling concerning for paronychia - NEURO Level of Consciousness: Awake, Alert, Appropriate Motor/Sensory: No Motor Deficit - DERM Integumentary: Warm, Dry. negative: Abscess Notes: Paronychia along lateral margin of the left great toe Course - Vital Signs Vital signs: Temp Pulse Resp BP Pulse Ox 98.6 F 81 16 132/71 H 97 02/22/17 13:39 02/22/17 13:39 02/22/17 13:39 02/22/17 13:39 02/22/17 13:39 Discharge - Discharge Clinical Impression: Paronychia of toe of left foot Condition: Stable Disposition: HOME, SELF-CARE Instructions: Anti-Inflammatory Medication ([facility]), Clindamycin ([facility]), Paronychia ([facility]) Additional Instructions: Return immediately for any new or worsening symptoms Followup with your primary care provider, call tomorrow to make a followup appointment Soak foot in warm soapy water at least 3 times a day Prescriptions: Clindamycin HCl [Cleocin Hcl] 300 mg PO QID #28 capsule Naproxen [Naprosyn 250 Nmg Tablet] 1 tab PO BID #14 tablet Referrals: [facility] [Provider Group] - Follow up as needed
== END 2017-02-22 15:05 | disposition home or self-care (01) ==
LOC: ER 13:25
DX: L03.032 Cellulitis of left toe (principal); M79.675 Pain in left toe(s)
CPT/HCPCS: 99283

== ENCOUNTER 2017-05-03 13:47 | Emergency (ER) | payer SELFPAY ==
--- NOTE | 2017-05-03 14:50 | ER Document Report ---
ED General - General Chief Complaint: Hand Pain Stated Complaint: RIGHT THUMP PAIN, SWELLING Time Seen by Provider: 05/03/17 14:28 Mode of Arrival: Ambulatory Information source: Patient Notes: Patient comes to the ER complaint of pain to the right thumb Patient denies and known trauma but has pain and slight swelling to the medial aspect of the right thumb nail. Also denies any know entrance for infection. Denies hang nail or biting nails. Denies any other medical problems TRAVEL OUTSIDE OF THE [place] IN LAST 30 DAYS: No - HPI Patient complains to provider of: Right thumb pain Onset: Other - 2 days ago Onset/Duration: Gradual, Worse Quality of pain: Throbbing Pain Level: 1 Associated symptoms: None Exacerbated by: Other - Palpation Relieved by: Other - Not touching Similar symptoms previously: No Recently seen / treated by doctor: No - Related Data Allergies/Adverse Reactions: cephalexin [From Keflex] Allergy (Verified 05/03/17 13:55) sulfamethoxazole [From Bactrim] Allergy (Verified 05/03/17 13:55) trimethoprim [From Bactrim] Allergy (Verified 05/03/17 13:55) Past Medical History - General Information source: Patient, Relative - Social History Smoking Status: Never Smoker Cigarette use (# per day): No Chew tobacco use (# tins/day): No Smoking Education Provided: No Frequency of alcohol use: None Drug Abuse: None Occupation: Unemployed Lives with: Family Family History: Reviewed & Not Pertinent, CVA, DM, Hyperlipidemia, Hypertension , Thyroid Disfunction Pulmonary Medical History: Reports: Hx Bronchitis Neurological Medical History: Reports: Hx Migraine Renal/ Medical History: Denies: Hx Peritoneal Dialysis Psychiatric Medical History: Reports: Hx Anxiety, Hx Depression Past Surgical History: Reports: Hx Cardiac Surgery - open heart for ASD (1987), Hx Oral Surgery - Immunizations Immunizations up to date: Yes Hx Diphtheria, Pertussis, Tetanus Vaccination: Yes Review of Systems - Review of Systems Constitutional: No symptoms reported EENT: No symptoms reported Cardiovascular: No symptoms reported Respiratory: No symptoms reported Gastrointestinal: No symptoms reported Genitourinary: No symptoms reported Male Genitourinary: No symptoms reported Musculoskeletal: No symptoms reported Skin: See HPI, Other - Redness to right thumb Hematologic/Lymphatic: No symptoms reported Neurological/Psychological: No symptoms reported -: Yes All other systems reviewed and negative Physical Exam - Vital signs Vitals: Temp Pulse Resp BP Pulse Ox 98.0 F 77 20 133/63 H 96 05/03/17 14:04 05/03/17 14:04 05/03/17 14:04 05/03/17 14:04 05/03/17 14:04 Interpretation: Hypertensive - General General appearance: Appears well, Alert, Other - Upon entering the exam room I found patient sitting on the side of the bed typing on her laptop with no difficulties at all use in all fingers. In distress: None - Respiratory Respiratory status: No respiratory distress Chest status: Nontender Breath sounds: Normal. No: Decreased air movement, Nonproductive cough, Productive cough, Rales, Rhonchi, Stridor, Wheezing, Other - Cardiovascular Rhythm: Regular Heart sounds: Normal auscultation Murmur: No - Extremities General upper extremity: Tender, Normal ROM, Normal strength General lower extremity: Normal inspection, Nontender, Normal ROM Hand: Tender, Swelling, Other - Examination of patient's right thumb shows her to be slight amount of swelling to the medial aspect of the right thumb nail. Tender to palpation there is no fluctuance and no overt paronychia at this time. There is no visible sign of wound entrance for possibility of infection. Patient does state he bites his nails on occasion and has not had a recent hangnail. He is awake alert and in no distress - Skin Skin Temperature: Warm Skin Moisture: Dry Skin Color: Erythema Skin irregularity: Erythema, other - As stated the examination of the right thumb shows some mild erythema to the medial aspect of the nailbed. Slightly tender to palpation and there does not seem to be any fluctuance or induration present. There is no overt pus that is seen on palpation. Course - Vital Signs Vital signs: Temp Pulse Resp BP Pulse Ox 98.0 F 77 20 133/63 H 96 05/03/17 14:04 05/03/17 14:04 05/03/17 14:04 05/03/17 14:04 05/03/17 14:04 - Transfer of Care Notes: 05/03/17 15:10 I have informed patient that at this time there is no thing for me to I&D or stick a needle into. Is more inflamed in nature although I cannot find a source of the infection or source of entrance for infection I feel this is going to be a early presentation for a paronychia. We will address the issue with warm soapy water soaks 2-3 times a day followed by application of an antibiotic cream or ointment and covered with a Band-Aid to soften the area. I will also give him a seven-day course of doxy for the infection. I have informed him that should this get worse more tender swollen or has the appearance of pus to return and we would do an I&D. Discharge - Discharge Clinical Impression: Cellulitis Qualifiers: Site of cellulitis of extremity: finger Laterality: right Disposition: HOME, SELF-CARE Instructions: Cellulitis ([facility]) Additional Instructions: Cellulitis You have an infection of your skin and underlying soft tissues called cellulitis. This is due to bacteria, which can enter through any break in the skin, or even through an irritated hair follicle. Untreated, cellulitis will usually worsen. Antibiotics are required. Usually, warm packs or warm soaks, and elevation of the infected area are recommended. You should start getting better within 24 to 36 hours. Most infections respond quickly to the right medication. Follow-up care is important, however, to check for abscess (boil) formation, unsuspected foreign body, or resistant infection. If you develop fever, chills, or if the area of infection is becoming rapidly more swollen or painful, call the doctor at once. At this time you have a infection around the nailbed that is not ready for any kind of an incision and drainage. It is more of a cellulitis type presentation. At this time wanted to soak his finger in warm soapy water 2-3 times a day. And antibiotic with a Band-Aid Neosporin to keep covered and oral antibiotics. Should this get worse come back to ER for an incision and drainage of the area. Prescriptions: Doxycycline Hyclate 100 mg PO BID #14 capsule Forms: Elevated Blood Pressure
[2017-05-03 15:25] VITALS: BP 128/84
== END 2017-05-03 15:25 | disposition home or self-care (01) ==
LOC: ER 13:47
DX: L03.011 Cellulitis of right finger (principal); Z88.3 Allergy status to other anti-infective agents
CPT/HCPCS: 99283

== ENCOUNTER 2017-11-17 11:29 | Emergency (ER) | payer SELFPAY ==
[2017-11-17 11:41] VITALS: BP 129/67
--- NOTE | 2017-11-17 12:20 | ER Document Report ---
HPI - HPI Patient complains to provider of: Right ear pain Pain Level: 3 Context: Patient is a 32-year-old male complaining of pain to his right ear 2 days. No fever. Positive runny nose and sneezing Exacerbated by: Denies Relieved by: Denies - EENT EENT: REPORTS: Ear Pain - REPRODUCTIVE Reproductive: DENIES: : Past Medical History - General Information source: Patient - Social History Smoking Status: Never Smoker Frequency of alcohol use: None Drug Abuse: None Lives with: Family Family History: Reviewed & Not Pertinent, CVA, DM, Hyperlipidemia, Hypertension , Thyroid Disfunction Patient has suicidal ideation: No Patient has homicidal ideation: No Pulmonary Medical History: Reports: Hx Bronchitis Neurological Medical History: Reports: Hx Migraine Renal/ Medical History: Denies: Hx Peritoneal Dialysis Psychiatric Medical History: Reports: Hx Anxiety, Hx Depression Past Surgical History: Reports: Hx Cardiac Surgery - open heart for ASD (1987), Hx Oral Surgery - Immunizations Immunizations up to date: Yes Hx Diphtheria, Pertussis, Tetanus Vaccination: Yes Vertical Provider Document - CONSTITUTIONAL Agree With Documented VS: Yes - INFECTION CONTROL TRAVEL OUTSIDE OF THE [place] IN LAST 30 DAYS: No - HEENT HEENT: Atraumatic Notes: Right external canal mildly edematous and erythematous. Positive white exudate in canal and on TM. No post a radicular or preauricular tenderness. No mastoid tenderness - NECK Neck: Normal Inspection, Supple - RESPIRATORY Respiratory: Breath Sounds Normal, No Respiratory Distress - CARDIOVASCULAR Cardiovascular: Regular Rate, Regular Rhythm - NEURO Level of Consciousness: Awake, Alert, Appropriate - DERM Integumentary: Warm, Dry Course - Vital Signs Vital signs: Temp Pulse Resp BP Pulse Ox 98.9 F 86 18 129/67 H 97 11/17/17 11:39 11/17/17 11:39 11/17/17 11:39 11/17/17 11:39 11/17/17 11:39 Discharge - Discharge Clinical Impression: External otitis of right ear Qualifiers: Otitis externa type: unspecified type Chronicity: acute Qualified Code(s): H60.501 - Unspecified acute noninfective otitis externa, right ear Condition: Stable Disposition: HOME, SELF-CARE Instructions: Acetaminophen, Use of Ear Drops ([facility]), Otitis Externa ([facility]) Additional Instructions: You have an external ear infection Use antibiotic drops as prescribed Keep the ear completely dry 7 days Tylenol/ibuprofen for discomfort follow-up with your primary care if pain persists Prescriptions: Ciprofloxacin HCl/Dexameth [Ciprodex Otic Suspension Drops] 3 drop RT_EAR BID # 1 bottle
== END 2017-11-17 12:35 | disposition home or self-care (01) ==
LOC: ER 11:29
DX: H60.501 Unspecified acute noninfective otitis externa, right ear (principal); H92.01 Otalgia, right ear; R09.89 Other specified symptoms and signs involving the circulatory and respiratory systems
CPT/HCPCS: 99282

== ENCOUNTER → 2020-01-13 | Outpatient (CLI) | payer SELFPAY ==
--- NOTE | 2020-01-13 13:44 | ER RDC ASSESSMENT REPORT ---
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 - Symptoms Subjective Fever([place] feverish): Yes Chills: No Muscule Aches: No Runny Nose: No Sore Throat: No Cough (New or worsening chronic cough): No Shortness of breath: No Nausea or Vomiting: No Headache: No Abdominal Pain: No Diarrhea(3 or more loose stools in last 24 hours): No - Do you have any of the following Chronic lung disease: Asthma or emphysema or COPD: No Cystic Fibrosis: No Diabetes: No High Blood Pressure: No Cardiovascular Disease: No Chronic Kidney Disease: No Chronic Liver Disease: No Chronic blood disorder like Sickle Cell Disease: No Weak immune system due to disease or medication: No Neurologic condition that limits movement: No Developmental delay - Moderate to Severe: No Recent (within past 2 weeks) or current : No Morbid Obesity (>100 pounds over ideal weight): No - Objective Temperature: 97.1 F Pulse Rate: 80 Respiratory Rate: 18 Blood Pressure: 139/72 O2 Sat by Pulse Oximetry: 97 Objective: Patient is a well-appearing 34-year-old male, who presents today for COVID-19 screening. Disposition: Home; Selfcare General - General Stated Complaint: Upper respiratory symptoms Mode of Arrival: Ambulatory Information source: Patient Notes: The patient was evaluated during the global COVID-19 pandemic. That diagnosis was suspected/considered upon initial presentation. Their evaluation, treatment, and testing was consistent with current guidelines for patients who present with complaints or symptoms that may be related to COVID-19. - HPI Patient complains to provider of: Upper respiratory symptoms Onset: Yesterday Onset/Duration: Persistent Quality of pain: No pain Severity: None Pain Level: Denies Associated symptoms: Fever Exacerbated by: Denies Relieved by: Denies Similar symptoms previously: No Recently seen / treated by doctor: No - Related Data Allergies/Adverse Reactions: cephalexin [From Keflex] Allergy (Verified 05/03/17 13:55) sulfamethoxazole [From Bactrim] Allergy (Verified 05/03/17 13:55) trimethoprim [From Bactrim] Allergy (Verified 05/03/17 13:55) Past Medical History - Social History Smoking Status: Never Smoker Cigarette use (# per day): No Chew tobacco use (# tins/day): No Smoking Education Provided: No Frequency of alcohol use: None Drug Abuse: None 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 Lives with: Family Family History: Reviewed & Not Pertinent, CVA, DM, Hyperlipidemia, Hypertension, Thyroid Disfunction Patient has suicidal ideation: No Patient has homicidal ideation: No Pulmonary Medical History: Reports: Hx Bronchitis Neurological Medical History: Reports: Hx Migraine Renal/ Medical History: Denies: Hx Peritoneal Dialysis Psychiatric Medical History: Reports: Hx Anxiety, Hx Depression Past Surgical History: Reports: Hx Cardiac Surgery - open heart for ASD (1987), Hx Oral Surgery Physical Exam - General General appearance: Appears well In distress: None Notes: PHYSICAL EXAMINATION: GENERAL: Well-appearing and in no acute distress. HEAD: Atraumatic, normocephalic. EYES: sclera anicteric, conjunctiva are normal. ENT: nares patent. Moist mucous membranes. NECK: Normal range of motion, supple without lymphadenopathy. LUNGS: CTAB and equal. No wheezes rales or rhonchi. HEART: Regular rate and rhythm without murmurs. EXTREMITIES: Normal range of motion, no pitting edema. No cyanosis. BACK: No midline or CVA tenderness. NEUROLOGICAL: Cranial nerves grossly intact. Normal speech. Normal gait. PSYCH: Normal mood, normal affect. SKIN: Warm, Dry, normal color and turgor, no obvious lesions or rash noted. Diagnostic Results Laboratory Results: Patient notified of NEGATIVE results on Rapid Flu (A & B) and Rapid Strep. Advised Throat Culture and COVID testing are PENDING, and they will be notified of any POSITIVE culture results at a later date/time. Patient has been made aware that is currently taking 5-7 days for COVID test results, and that [facility] will call them with their COVID-19 test results, whether they are NEGATIVE or POSITIVE. Patient Education/Counseling Counseling/Education: Patient presents with upper respiratory symptoms worrisome for possible COVID- 19. Patient does not have symptoms worrisome as an emergency such as difficulty breathing, shortness of breath, chest pain, pressure, confusion or cyanosis. Patient appears suitable for discharge. Patient's vital signs are stable and patient is nontoxic in appearance. Good return precautions have been discussed with patient, patient verbalized understanding and is agreeable with discharge plan of care at this time. Patient provided COVID-19 discharge instructions to include: As a person under investigation for COVID-19, the [place] department of Health and Human Services, division of public health advises you to adhere to the following guidance until your test results are reported to you. If your test result is positive, you will receive additional information from your provider and your local health department at that time. Remain at home until you are cleared by the health provider or public health authorities. Keep a log of visitors to your home, notify any visitors to your home of your isolation status. If you plan to move to a new address or leave the county, notify the local health department in your County. Call your doctor or seek care if you have an urgent medical need. Before seeking medical care, call ahead to get instructions from the provider before arriving at the medical office clinic or hospital. Notify them that you are being tested for the virus that causes COVID-19 so that arrangements can be made, as necessary, to prevent transmission to others in the healthcare setting. Next, notify the local health department in your county. If a medical emergency arises and you need to call 911, inform dispatch and the first responders that you are being tested for the virus that causes COVID-19. Next, notify the local health department in your county. Guidance for worsening S/SX: For worsening symptoms, patient has been advised to contact their Primary Care Provider, or go to the nearest Emergency Department. RDC Discharge - Discharge Clinical Impression: COVID-19 Screening URI (upper respiratory infection) Qualifiers: URI type: unspecified URI Qualified Code(s): J06.9 - Acute upper respiratory infection, unspecified Condition: Stable Disposition: Home; Selfcare
[2020-01-13 13:49] VITALS: BP 139/72
[2020-01-13 13:59] LABS: A TYPE INFLUENZA AG NEGATIVE (NEGATIVE); B INFLUENZA AG NEGATIVE (NEGATIVE)
== END ==
LOC: RDC 12:28
PROVIDERS: ATTEND Nurse Practitioner Family
DX: Z20.828 Contact with and (suspected) exposure to other viral communicable diseases (principal)
CPT/HCPCS: 87070; 87880; 87635; 87804; C9803; 99201; 99211